=== PATIENT | female | born 1955 ===

== ENCOUNTER 2017-05-23 09:17 | Observation (INO) | payer OTHER, SELFPAY ==
[2017-05-23 09:22] VITALS: BMI 37.0
[2017-05-23 09:24] VITALS: TEMP 98; O2SAT 100
--- NOTE | 2017-05-23 09:31 | C.PDOC ---
History Of Present Illness Patient is a 61 yo female who presents to the ED with a complaint of upper abdominal pain for the last 14 days. Patient reports the pain is intermittent, sharp, and worse in the RUQ; the pain radiates to her back and is associated with nausea but no vomiting. Patient reports the pain worsens after eating; experiences constipation but reports to have had a good bowel movement yesterday. Admits to urinary frequency but denies dysuria and fever. Patient has a PMHx of DM, HTN, A-Fib and gallstones. Chief Complaint (Nursing): Abdominal Pain History Per: Patient History/Exam Limitations: no limitations Onset/Duration Of Symptoms: Days (14 days. ) Current Symptoms Are (Timing): Still Present Location Of Pain/Discomfort: RUQ (pain worse. ), Epigastric Quality Of Discomfort: Sharp Associated Symptoms: Nausea, Constipation, Urinary Symptoms (frequency). denies : Fever, Vomiting, Diarrhea Recent travel outside of the [place]: No Past Medical History Reviewed: Historical Data, Nursing Documentation, Vital Signs Vital Signs: Last Vital Signs Temp 98.0 F 05/23/17 09:23 Pulse 89 05/23/17 13:21 Resp 10 L 05/23/17 13:21 BP 116/78 05/23/17 13:21 Pulse Ox 100 05/23/17 14:10 - Medical History PMH: Diabetes, Gall Bladder Disease, HTN, Hypercholesterolemia, Hypothyroidism, Kidney Stones - [facility] Procedures CORONAR ARTERIOGR-2 CATH (06/19/13) RT & LT HEART ANGIOCARD (06/19/13) RT/LEFT HEART CARD CATH (06/19/13) Family History: States: Unknown Family Hx - Social History Hx Tobacco Use: No Hx Alcohol Use: No Hx Substance Use: No - Immunization History Hx Tetanus Toxoid Vaccination: No Hx Influenza Vaccination: No Hx Pneumococcal Vaccination: No Review Of Systems Constitutional: Negative for: Fever Cardiovascular: Negative for: Chest Pain Respiratory: Negative for: Shortness of Breath Gastrointestinal: Positive for: Nausea, Abdominal Pain, Constipation. Negative for: Vomiting Genitourinary: Positive for: Frequency. Negative for: Dysuria Physical Exam - Physical Exam Appears: Well, Non-toxic, No Acute Distress Skin: Normal Color, Warm, Dry Head: Atraumatic, Normacephalic Oral Mucosa: Moist Chest: Symmetrical Cardiovascular: Rhythm Irregular (A-Fib hx), No Murmur Respiratory: Normal Breath Sounds, No Rales, No Rhonchi, No Wheezing Gastrointestinal/Abdominal: Bowel Sounds (normal bowel sounds.), Soft, Tenderness (RUQ), No Distention, Other (negative Rubio's sign ) Extremity: Normal ROM (x4) Neurological/Psych: Oriented x3, Normal Speech, Normal Cognition ED Course And Treatment - Laboratory Results Result Diagrams: 05/23/17 09:56 05/23/17 09:56 ECG: Interpreted By Me, Viewed By Me ECG Rhythm: Atrial Fibrillation ECG Interpretation: Abnormal Rate From EC O2 Sat by Pulse Oximetry: 100 (Room air ) Pulse Ox Interpretation: Normal - CT Scan/US CT A/P Other Rad Studies (CT/US): Interpreted By Me CT/US Interpretation: FINDINGS: LOWER THORAX: No visible consolidation, pleural effusion, or pneumothorax. Partially imaged cardiomegaly. LIVER: Hypoattenuation of the liver compatible with hepatic steatosis. GALLBLADDER AND BILE DUCTS: Cholelithiasis. PANCREAS: Unremarkable. SPLEEN: Unremarkable. ADRENALS: Unremarkable. KIDNEYS AND URETERS: The kidneys enhance symmetrically. No hydronephrosis or obstructing calculus identified. VASCULATURE: No aortic aneurysm. BOWEL: Stomach is nondistended. Lack of oral contrast limits evaluation for bowel pathology. Bowel loops appear within normal limits of caliber without evidence of obstruction. APPENDIX: The appendix appears within normal limits of caliber. No secondary signs of acute appendicitis. PERITONEUM: No significant free fluid. No definite free air. LYMPH NODES: No bulky adenopathy identified. BLADDER: Unremarkable. REPRODUCTIVE: The uterus is present. BONES: Mild degenerative changes. Impression: Cholelithiasis; echogenic liver may be seen in setting of hepatic parenchymal disease or fatty infiltration. Partially images cardiomegaly. Progress Note: blood work, CT A/P with IV contrast, UA/Urine culture, and EKG ordered; Pepcid, Toradol, Zofran, and IV fluids ordered. Medical Decision Making Medical Decision Making: Prior records reviewed: Patient seen at [facility] on 07/06/15 for abdominal pain and diagnosed with cholelithiasis Plan: * CT abdomen/pelvis * EKG * bloodwork, UA, labs * Pepcid, Toradol, Zofran, IVFs * Obs- ED ED OBSERVATION Discharge: Yes Date of observation admission: 05/23/17 Time of observation admission: 09:43 - Observation admission statement Patient is being placed in observation because:: Abdominal pain - Goals of Observation Goals of observation are:: Labs, IV hydration, CT imaging - Progress Note Progress Note: 05/23/17 11:10 Labs reviewed, no significant findings. No leukocytosis, elevated lipase or electrolyte abnormality. Urine analysis WNL. 05/23/17 14:00 CT Impression: Cholelithiasis; echogenic liver may be seen in setting of hepatic parenchymal disease or fatty infiltration. Partially images cardiomegaly 05/23/17 14:02 On re-evaluation patient resting comfortably and reports pain has improved. She remains well, abdomen soft and minimally tender. I explained lab and CT findings with patient and family. Recommend analgesics, dietary changes and to follow up with GI if pain persists Disposition Counseled Patient/Family Regarding: Diagnosis, Need For Followup, Rx Given - Disposition Disposition: HOME/ ROUTINE Disposition Time: 14:10 Condition: STABLE - POA Present On Arrival: Poor Glycemic Control - Clinical Impression Clinical Impression: Cholelithiasis, Abdominal pain - Scribe Statement The provider has reviewed the documentation as recorded by the Scribabdiel Soto All medical record entries made by the Raeibabdiel were at my direction and personally dictated by me. I have reviewed the chart and agree that the record accurately reflects my personal performance of the history, physical exam, medical decision making, and the department course for this patient. I have also personally directed, reviewed, and agree with the discharge instructions and disposition.
[2017-05-23] MEDS ORDERED: Sodium Chloride 0.9% 1,000 ML IV ONE (09:42)
[2017-05-23 10:00] LABS: BASO % 0.7 % (0.0-2.0); EOS # 0.2 K/uL (0.0-0.7); EOS % 2.9 % (0.0-4.0); HEMATOCRIT 41.4 % (34.0-47.0); LYMPH # 2.2 K/uL (1.0-4.3); LYMPH % 29.4 % (20.0-40.0); MEAN CORPUSCULAR HEMOGLOBIN 30.7 pg (27.0-31.0); MEAN CORPUSCULAR HGB CONC 33.4 g/dL (33.0-37.0); MEAN PLATELET VOLUME 8.8 fL (7.2-11.7); MONO # 0.5 K/uL (0.0-0.8); MONO % 7.3 % (0.0-10.0); NRBC % 0.1 % (0.0-2.0); RED CELL DISTRIBUTION WIDTH 14.5 % (11.5-14.5); WHITE BLOOD COUNT 7.4 K/uL (4.8-10.8)
[2017-05-23] MEDS ORDERED: Sodium Chloride 0.9% 1,000 ML ONE (10:00)
[2017-05-23 10:01] LABS: MEAN CELL VOLUME 91.9 fL (81.0-99.0)
[2017-05-23 10:09] LABS: URINE BILIRUBIN NEGATIVE (NEGATIVE); URINE BLOOD NEGATIVE (NEGATIVE); URINE COLOR Straw (YELLOW); URINE GLUCOSE (UA) NORMAL (Normal); URINE KETONE NEGATIVE (NEGATIVE); URINE LEUKOCYTE ESTERASE NEG Leu/uL (Negative); URINE PROTEIN NEGATIVE (NEGATIVE); URINE UROBILINOGEN NORMAL mg/dL (0.2-1.0); WBC URINE < 1 /hpf (0-5)
[2017-05-23 10:21] LABS: ALKALINE PHOSPHATASE 108 U/L (38-126); ALT/SGPT 32 U/L (9-52); AST/SGOT 25 U/L (14-36); BLOOD UREA NITROGEN 14 mg/dL (7-17); CALCIUM 9.6 mg/dl (8.6-10.4); CARBON DIOXIDE 27 mmol/L (22-30); CHLORIDE 98 mmol/L (98-107); GFR AFRICAN-AMERICAN > 60; GLUCOSE,RANDOM 141 mg/dL (65-105); POTASSIUM 4.3 mmol/L (3.6-5.2); SODIUM 141 mmol/L (132-148); TOTAL PROTEIN 8.3 g/dL (6.3-8.3)
[2017-05-23] MEDS ORDERED: Iodixanol 320 MG/ML 100 ML BOTTLE IV ONE (11:15)
--- NOTE | 2017-05-23 12:51 | CT ---
PROCEDURE: CT Abdomen and Pelvis with contrast HISTORY: upper abd pain COMPARISON: Obstructive series performed 07/13/13 TECHNIQUE: Contrast dose: 100 cc Visipaque 320 Radiation dose: Total exam DLP = 1047.59 MGy-cm. This CT exam was performed using one or more of the following dose reduction techniques: Automated exposure control, adjustment of the mA and/or kV according to patient size, and/or use of iterative reconstruction technique. FINDINGS: LOWER THORAX: No visible consolidation, pleural effusion, or pneumothorax. Partially imaged cardiomegaly. LIVER: Hypoattenuation of the liver compatible with hepatic steatosis. GALLBLADDER AND BILE DUCTS: Cholelithiasis. PANCREAS: Unremarkable. SPLEEN: Unremarkable. ADRENALS: Unremarkable. KIDNEYS AND URETERS: The kidneys enhance symmetrically. No hydronephrosis or obstructing calculus identified. VASCULATURE: No aortic aneurysm. BOWEL: Stomach is nondistended. Lack of oral contrast limits evaluation for bowel pathology. Bowel loops appear within normal limits of caliber without evidence of obstruction. APPENDIX: The appendix appears within normal limits of caliber. No secondary signs of acute appendicitis. PERITONEUM: No significant free fluid. No definite free air. LYMPH NODES: No bulky adenopathy identified. BLADDER: Unremarkable. REPRODUCTIVE: The uterus is present. BONES: Mild degenerative changes. OTHER FINDINGS: None. IMPRESSION: Cholelithiasis. Echogenic liver may be seen in setting of hepatic parenchymal disease or fatty infiltration. Partially imaged cardiomegaly.
[2017-05-23 13:23] VITALS: BP 116/78; PULSE 89; RESP 10
--- NOTE | 2017-05-25 18:29 | CARD ---
APPROVED REPORT EKG Measurement Heart [id number] <Conclusion> Atrial fibrillation Abnormal ECG
== END 2017-05-23 14:10 | disposition home or self-care (01) ==
LOC: C.ER 09:17 → C.9OBSV 09:43
PROVIDERS: ADMIT Emergency Medicine; ATTEND Emergency Medicine
DX: K80.20 Calculus of gallbladder without cholecystitis without obstruction (principal); E11.9 Type 2 diabetes mellitus without complications; I10 Essential (primary) hypertension; E78.00 Pure hypercholesterolemia, unspecified; E03.9 Hypothyroidism, unspecified; N20.0 Calculus of kidney
CPT/HCPCS: 36415; 74177; 80053; 81001; 83690; 85025; 87086; 96360; 96374; J1885; J2405; J7040; Q9967

== ENCOUNTER 2017-09-23 10:01 | Inpatient (IN) | payer OTHER ==
[2017-09-23 10:01] VITALS: BMI 37.0
[2017-09-23] MEDS ORDERED: Sodium Chloride 0.9% 500 ML IV ONE ×2 (10:23→10:56)
[2017-09-23 10:41] LABS: BASO # 0.1 K/uL (0.0-0.2); BASO % 0.6 % (0.0-2.0); EOS # 0.3 K/uL (0.0-0.7); EOS % 2.8 % (0.0-4.0); HEMOGLOBIN 12.8 g/dL (11.0-16.0); LYMPH # 1.9 K/uL (1.0-4.3); LYMPH % 19.6 % (20.0-40.0); MEAN CELL VOLUME 91.7 fL (81.0-99.0); MEAN CORPUSCULAR HEMOGLOBIN 32.1 pg (27.0-31.0); MEAN PLATELET VOLUME 9.2 fL (7.2-11.7); MONO # 0.7 K/uL (0.0-0.8); MONO % 7.3 % (0.0-10.0); NEUT # 6.6 K/uL (1.8-7.0); NEUT % 69.7 % (50.0-75.0); NRBC % 0.1 % (0.0-2.0); RBC 3.99 Mil/uL (3.80-5.20); RED CELL DISTRIBUTION WIDTH 13.2 % (11.5-14.5); WHITE BLOOD COUNT 9.5 K/uL (4.8-10.8)
[2017-09-23 10:53] LABS: ALB/GLOB RATIO 1.1 (1.0-2.1); ALBUMIN 4.2 g/dL (3.5-5.0); ALT/SGPT 37 U/L (9-52); AST/SGOT 22 U/L (14-36); BLOOD UREA NITROGEN 11 mg/dL (7-17); CALCIUM 8.4 mg/dl (8.6-10.4); GFR AFRICAN-AMERICAN > 60; GFR NON-AFRICAN AMERICAN > 60
--- NOTE | 2017-09-23 11:02 | C.PDOC ---
History Of Present Illness 62 yo female w/PMhx of AFib, NIDDM, HTN, CHF come in for evaluation of cold sx for past week associated with runny nose, cough. As per pt, for past few days , cough became more productive with yellow sputum and associated with chest tightness with coughing. Otherwise, pt denies high fever, chills, headache, dizziness, neck pain, SOB, dyspnea, diaphoresis, palpitation, wheezing, abd. pain, V/D, back pain, UTI sx. Ambulate to Ed for evaluation, not in nay apparent distress. Time Seen by Provider: 09/23/17 10:20 Chief Complaint (Nursing): Cough, Cold, Congestion History Per: Patient History/Exam Limitations: no limitations Onset/Duration Of Symptoms: Days Current Symptoms Are (Timing): Still Present Location Of Pain: None Sick Contacts (Context): None Associated Symptoms: Cough, Sputum. denies: Neck Pain, Vomiting, Diarrhea Ear Symptoms: Bilateral: None Recent travel outside of the [place]: No Additional History Per: Patient Past Medical History Reviewed: Historical Data, Nursing Documentation, Vital Signs Vital Signs: Last Vital Signs Temp 99 F 09/23/17 10:04 Pulse 134 H 09/23/17 13:39 Resp 20 09/23/17 13:39 BP 136/88 09/23/17 13:39 Pulse Ox 97 09/23/17 13:39 - Medical History PMH: Diabetes, Gall Bladder Disease, HTN, Hypercholesterolemia, Hypothyroidism, Kidney Stones - [facility] Procedures CORONAR ARTERIOGR-2 CATH (06/19/13) RT & LT HEART ANGIOCARD (06/19/13) RT/LEFT HEART CARD CATH (06/19/13) Family History: States: Unknown Family Hx - Social History Hx Tobacco Use: No Hx Alcohol Use: No Hx Substance Use: No - Immunization History Hx Tetanus Toxoid Vaccination: No Hx Influenza Vaccination: No Hx Pneumococcal Vaccination: No Review Of Systems Except As Marked, All Systems Reviewed And Found Negative. Constitutional: Negative for: Fever, Chills ENT: Positive for: Nose Discharge, Nose Congestion. Negative for: Ear Discharge , Throat Pain, Throat Swelling Cardiovascular: Negative for: Chest Pain, Palpitations, Edema, Light Headedness Respiratory: Positive for: Cough, Sputum. Negative for: Shortness of Breath, SOB with Excertion, Pleuritic Pain, Wheezing Gastrointestinal: Negative for: Nausea, Vomiting, Abdominal Pain, Diarrhea Genitourinary: Negative for: Dysuria, Incontinence Musculoskeletal: Negative for: Neck Pain Skin: Negative for: Rash Neurological: Negative for: Weakness, Numbness, Altered Mental Status, Headache , Dizziness Physical Exam - Physical Exam Appears: Well, Non-toxic, No Acute Distress Skin: Normal Color, Warm, Dry, No Rash Head: Normacephalic Eye(s): bilateral: PERRL Ear(s): Bilateral: Normal Nose: No Flaring, Discharge (scattered clear B/L with congestion) Oral Mucosa: Moist, No Drooling Tongue: Normal Appearing Lips: Normal Appearing Throat: No Erythema, No Drooling Neck: Supple Cardiovascular: Rhythm Irregular, No Murmur, No JVD Respiratory: No Decreased Breath Sounds, No Accessory Muscle Use, No Stridor, No Wheezing Gastrointestinal/Abdominal: Soft, No Tenderness Back: No CVA Tenderness Extremity: Normal ROM, No Pedal Edema, No Deformity, No Swelling Neurological/Psych: Oriented x3, Normal Speech ED Course And Treatment - Laboratory Results Result Diagrams: 09/23/17 10:38 09/23/17 10:38 Lab Interpretation: Normal ECG: Interpreted By Me, Viewed By Me (and ED attending) ECG Rhythm: Atrial Fibrillation ECG Interpretation: No Changes From Prior Interpretation Of ECG: AFib@120/min O2 Sat by Pulse Oximetry: 100 Pulse Ox Interpretation: Normal - Radiology CXR: Interpreted by Me, Viewed By Me CXR Interpretation: Yes: Cardiomegaly. No: Infiltrates - Other Rad CXR X-Ray: Read By Radiologist Interpretation: HISTORY: Pneumonia. COMPARISON: No prior. TECHNIQUE: Chest PA and lateral. FINDINGS: LUNGS: No focal infiltrate is clearly seen. Exam is limited by body habitus. There may be some mild prominence of the interstitial markings, a portion of which may also be related to overlying soft tissue. There may be some mild subsegmental atelectasis seen at the left lung base. PLEURA: No definite pleural effusion. No pneumothorax. CARDIOVASCULAR: Heart is enlarged. There may also be some prominence of the main pulmonary outflow tract which may suggest pulmonary artery hypertension. OSSEOUS STRUCTURES: No significant abnormalities. VISUALIZED UPPER ABDOMEN: Normal. OTHER FINDINGS: Mild degenerative changes are seen in the spine. Trachea is midline. IMPRESSION: No focal infiltrate. Mild interstitial change a portion of which may be related to overlying soft tissue. Mild subsegmental atelectasis or volume loss at the left lung base. Progress Note: After initial evaluation, pt appers in Afib 120'/min. case discussed with jeanette Wang bolus ordered. monitoring analyst. Pt was re -evaluated every 30 minutes and remained hemodynamicaly stable but sympomaticaly unchanged . Pt admits, non-complaint with medication for past year, only takes BP meds and ASA. Pharmacy provided by patient called, last rx was given in 2014. Pt hs clinical findings c/w CHF, Afib, non-complaint with medication, CP, bronchitis r/o PNA. Admission offered and pt agrees with plan. Case discussed with Hospitalist and admission arranged. Critical Care Time - Critical Care Note Total Time (in mins): 40 Documented critical care: time excludes all time spent performing seperately billable procedures. Disposition - Disposition Disposition: HOSPITALIZED Disposition Time: 12:41 Condition: STABLE - Clinical Impression Clinical Impression: Bronchitis, Afib, CHF (congestive heart failure), Chest pain - PA / GLOBAL [employer]IMATE CHANGE RESEARCHER / Resident Statement MD/DO has reviewed & agrees with the documentation as recorded. - Scribe Statement The provider has reviewed the documentation as recorded by the Bridget Stewart All medical record entries made by the Bridget were at my direction and personally dictated by me. I have reviewed the chart and agree that the record accurately reflects my personal performance of the history, physical exam, medical decision making, and the department course for this patient. I have also personally directed, reviewed, and agree with the discharge instructions and disposition.
[2017-09-23] MEDS ORDERED: Albuterol 0.083% Inhal Sol (2.5 mg/3 mL) UD IH STA (11:05)
[2017-09-23] MEDS ORDERED: MethylPREDNISolone 40 mg Vial IVP STA (11:07)
[2017-09-23 11:17] LABS: SQUAMOUS EPITHIAL 3 /hpf (0-5); URINE BACTERIA RARE (<OCC); URINE BILIRUBIN NEGATIVE (NEGATIVE); URINE BLOOD NEGATIVE (NEGATIVE); URINE CLARITY Clear (Clear); URINE COLOR Yellow (YELLOW); URINE GLUCOSE (UA) NORMAL (Normal); URINE LEUKOCYTE ESTERASE NEG Leu/uL (Negative); URINE NITRATE NEGATIVE (NEGATIVE); URINE PROTEIN NEGATIVE (NEGATIVE); URINE UROBILINOGEN NORMAL mg/dL (0.2-1.0)
[2017-09-23] MEDS ORDERED: Albuterol 0.083% Inhal Sol (2.5 mg/3 mL) UD ONE (12:01)
[2017-09-23] MEDS ORDERED: MethylPREDNISolone 40 mg Vial ONE (12:01)
[2017-09-23 12:08] LABS: B-TYPE NATRIURETIC PEPTIDE 1120 pg/mL (0-900)
[2017-09-23] MEDS ORDERED: Azithromycin 500 MG in Sodium Chloride 0.9% 250 ML IVPB STA (12:34)
--- NOTE | 2017-09-23 13:24 | RAD ---
HISTORY: Pneumonia COMPARISON: No prior. TECHNIQUE: Chest PA and lateral FINDINGS: LUNGS: No focal infiltrate is clearly seen. Exam is limited by body habitus. There may be some mild prominence of the interstitial markings, a portion of which may also be related to overlying soft tissue. There may be some mild subsegmental atelectasis seen at the left lung base. PLEURA: No definite pleural effusion. No pneumothorax CARDIOVASCULAR: Heart is enlarged. There may also be some prominence of the main pulmonary outflow tract which may suggest pulmonary artery hypertension. OSSEOUS STRUCTURES: No significant abnormalities. VISUALIZED UPPER ABDOMEN: Normal. OTHER FINDINGS: Mild degenerative changes are seen in the spine. Trachea is midline. IMPRESSION: No focal infiltrate. Mild interstitial change a portion of which may be related to overlying soft tissue. Mild subsegmental atelectasis or volume loss at the left lung base.
[2017-09-23] MEDS ORDERED: Digoxin 500 mcg/2ml (0.5 mg/2ml) Inj IVP STA (14:04)
[2017-09-23] MEDS ORDERED: Ipratropium 0.02% Inhal Soln (0.5 mg/2.5 ml) UD IH PRN (14:36)
--- NOTE | 2017-09-23 15:21 | CP.PCM.CON ---
History of Present Illness - History of Present Illness History of Present Illness: patient seen/examined. patient has a history of afib, and has been followed in clinic. The patient was found to have afib with RVR. She terence associiated dyspnea. recommend admit to telemetry start cardizem lovenox. echocardiogram Past Patient History - Past Social History Smoking Status: Never Smoked - CARDIAC Hx Hypercholesterolemia: Yes Hx Hypertension: Yes - RENAL Hx Kidney Stones: Yes - ENDOCRINE/METABOLIC Hx Hypothyroidism: Yes - GASTROINTESTINAL Hx Gall Bladder Disease: Yes - PSYCHIATRIC Hx Substance Use: No - SURGICAL HISTORY Hx Cardiac Catheterization: Yes - ANESTHESIA Hx Anesthesia: Yes Hx Anesthesia Reactions: No Meds Allergies/Adverse Reactions: Allergies Allergy/AdvReac Type Severity Reaction Status Date / Time No Known Allergies Allergy Verified 05/23/17 09:20 - Medications Medications: Current Medications Aspirin (Aspirin Chewable) 81 mg PO DAILY KENYA Diltiazem HCl (Cardizem) 60 mg PO QID [facility] Enoxaparin Sodium (Lovenox) 90 mg SC Q12 KENYA Furosemide (Lasix) 20 mg IVP DAILY KENYA Last Admin: 09/23/17 15:17 Dose: 20 mg Ipratropium [place] (Atrovent) 0.5 mg IH RQ6 PRN PRN Reason: Shortness of Breath Results - Vital Signs Recent Vital Signs: Last Vital Signs Temp 99 F 09/23/17 10:04 Pulse 134 H 09/23/17 13:39 Resp 20 09/23/17 13:39 BP 119/79 09/23/17 15:17 Pulse Ox 100 09/23/17 14:56 - Labs Result Diagrams: 09/24/17 08:50 09/24/17 08:50 Labs: Laboratory Results - last 24 hr 09/23/17 09/23/17 09/23/17 10:38 10:38 11:06 WBC 9.5 RBC 3.99 Hgb 12.8 Hct 36.6 MCV 91.7 MCH 32.1 H MCHC 35.0 RDW 13.2 Plt Count 186 MPV 9.2 Neut % (Auto) 69.7 Lymph % (Auto) 19.6 L Bowie % (Auto) 7.3 Eos % (Auto) 2.8 Baso % (Auto) 0.6 Neut # 6.6 Lymph # 1.9 Bowie # 0.7 Eos # 0.3 Baso # 0.1 Sodium 138 Potassium 3.6 Chloride 99 Carbon Dioxide 27 Anion Gap 16 BUN 11 Creatinine 0.7 Est GFR ( Amer) > 60 Est GFR (Non-Af Amer) > 60 Random Glucose 157 H Calcium 8.4 L Total Bilirubin 1.3 AST 22 ALT 37 Alkaline Phosphatase 84 Troponin I < 0.0120 NT-Pro-B Natriuret Pep 1120 H Total Protein 8.2 Albumin 4.2 Globulin 4.0 H Albumin/Globulin Ratio 1.1 Urine Color Yellow Urine Clarity Clear Urine pH 6.0 Ur Specific [place] 1.012 Urine Protein Negative Urine Glucose (UA) Normal Urine Ketones Negative Urine Blood Negative Urine Nitrate Negative Urine Bilirubin Negative Urine Urobilinogen Normal Ur Leukocyte Esterase Neg Urine WBC (Auto) 1 Urine RBC (Auto) < 1 Ur Squamous Epith Cells 3 Urine Bacteria Rare Digoxin Influenza Typ A,B (EIA) 09/23/17 09/23/17 11:20 12:45 WBC RBC Hgb Hct MCV MCH MCHC RDW Plt Count MPV Neut % (Auto) Lymph % (Auto) Bowie % (Auto) Eos % (Auto) Baso % (Auto) Neut # Lymph # Bowie # Eos # Baso # Sodium Potassium Chloride Carbon Dioxide Anion Gap BUN Creatinine Est GFR ( Amer) Est GFR (Non-Af Amer) Random Glucose Calcium Total Bilirubin AST ALT Alkaline Phosphatase Troponin I NT-Pro-B Natriuret Pep Total Protein Albumin Globulin Albumin/Globulin Ratio Urine Color Urine Clarity Urine pH Ur Specific [place] Urine Protein Urine Glucose (UA) Urine Ketones Urine Blood Urine Nitrate Urine Bilirubin Urine Urobilinogen Ur Leukocyte Esterase Urine WBC (Auto) Urine RBC (Auto) Ur Squamous Epith Cells Urine Bacteria Digoxin < 0.4 L Influenza Typ A,B (EIA) Negative for flu a/b
[2017-09-23] MEDS ORDERED: Digoxin 500 mcg/2ml (0.5 mg/2ml) Inj ONE (16:00)
--- NOTE | 2017-09-23 16:09 | CP.PCM.HP ---
<Gayathri WilcoxDolores - Last Filed: 09/23/17 19:59> History of Present Illness - History of Present Illness History of Present Illness: CC: Cough Patient is a 62 yo female with PMH afib, HTN, CHF, cholelithiasis presenting with a 3 day history of cough with yellowish sputum production. She has been taking Dayquil and Nyquil which have relieved her symptoms minimally. She also admits to episodes of her heart racing as well as a pressure like sensation in the center of her chest when she if coughing. However, these symptoms subside when she is not coughing. Patient denies throat pain. Patient also complains of subjective fevers for the past 3 days. Of note, she recently ran out of her medications and had not taken them in about a week. She is also s /p cardiac catheterization in 06/30 which showed normal coronary arteries and moderate mitral stenosis. She denies SOB, N/V, abdominal, diarrhea. PMD: none Cardio: Dr. Watson Morales Allergies: Denies Medications: Aspirin 81 mg PO QD, Digoxin, Olmesartan medoxomil/amlodipine/HCTZ 40 mg/5 mg/12.5 mg PMD: Unknown Surgical history: Cardiac catheterization 06/30 Family history: Denies Social history: Denies tobacco, alcohol, or recreational drug use Present on Admission - Present on Admission Any Indicators Present on Admission: No History of DVT/PE: No History of Uncontrolled Diabetes: No Urinary Catheter: No Decubitus Ulcer Present: No Review of Systems - Constitutional Constitutional: Fever. absent: Headache - EENT Eyes: absent: Change in Vision Nose/Mouth/Throat: absent: Sore Throat - Cardiovascular Cardiovascular: Chest Pain, Irregular Heart Rhythm, Palpitations, Rapid Heart Rate. absent: Dyspnea, Edema - Respiratory Respiratory: Cough, Chest Congestion, Excessive Mucous Production, Pain with Coughing - Gastrointestinal Gastrointestinal: absent: Abdominal Pain, Constipation, Diarrhea, Nausea, Vomiting - Integumentary Integumentary: absent: Rash - Hematologic/Lymphatic Hematologic: absent: Easy Bleeding, Easy Bruising Past Patient History - Past Social History Smoking Status: Never Smoked - CARDIAC Hx Hypercholesterolemia: Yes Hx Hypertension: Yes - RENAL Hx Kidney Stones: Yes - ENDOCRINE/METABOLIC Hx Hypothyroidism: Yes - GASTROINTESTINAL Hx Gall Bladder Disease: Yes - PSYCHIATRIC Hx Substance Use: No - SURGICAL HISTORY Hx Cardiac Catheterization: Yes - ANESTHESIA Hx Anesthesia: Yes Hx Anesthesia Reactions: No Meds Allergies/Adverse Reactions: Allergies Allergy/AdvReac Type Severity Reaction Status Date / Time No Known Allergies Allergy Verified 05/23/17 09:20 Physical Exam - Constitutional Appears: Non-toxic, No Acute Distress - Head Exam Head Exam: ATRAUMATIC, NORMAL INSPECTION, NORMOCEPHALIC - Eye Exam Eye Exam: EOMI, Normal appearance - ENT Exam ENT Exam: Mucous Membranes Moist - Respiratory Exam Respiratory Exam: Rhonchi, NORMAL BREATHING PATTERN - Cardiovascular Exam Cardiovascular Exam: Tachycardia, Irregular Rhythm, +S1, +S2 - GI/Abdominal Exam GI & Abdominal Exam: Normal Bowel Sounds, Soft. absent: Tenderness - Extremities Exam Extremities exam: Positive for: normal inspection. Negative for: pedal edema, tenderness - Back Exam Back exam: NORMAL INSPECTION - Neurological Exam Neurological exam: Alert, Oriented x3 - Psychiatric Exam Psychiatric exam: Normal Affect, Normal Mood - Skin Skin Exam: Intact, Normal Color, Warm Results - Vital Signs Recent Vital Signs: Last Vital Signs Temp 99 F 09/23/17 10:04 Pulse 134 H 09/23/17 13:39 Resp 20 09/23/17 13:39 BP 119/79 09/23/17 15:17 Pulse Ox 100 09/23/17 14:56 - Labs Result Diagrams: 09/23/17 10:38 09/23/17 10:38 Labs: Laboratory Results - last 24 hr 09/23/17 09/23/17 09/23/17 10:38 10:38 11:06 WBC 9.5 RBC 3.99 Hgb 12.8 Hct 36.6 MCV 91.7 MCH 32.1 H MCHC 35.0 RDW 13.2 Plt Count 186 MPV 9.2 Neut % (Auto) 69.7 Lymph % (Auto) 19.6 L [place] % (Auto) 7.3 Eos % (Auto) 2.8 Baso % (Auto) 0.6 Neut # 6.6 Lymph # 1.9 [place] # 0.7 Eos # 0.3 Baso # 0.1 Sodium 138 Potassium 3.6 Chloride 99 Carbon Dioxide 27 Anion Gap 16 BUN 11 Creatinine 0.7 Est GFR ( Amer) > 60 Est GFR (Non-Af Amer) > 60 Random Glucose 157 H Calcium 8.4 L Total Bilirubin 1.3 AST 22 ALT 37 Alkaline Phosphatase 84 Troponin I < 0.0120 NT-Pro-B Natriuret Pep 1120 H Total Protein 8.2 Albumin 4.2 Globulin 4.0 H Albumin/Globulin Ratio 1.1 Urine Color Yellow Urine Clarity Clear Urine pH 6.0 Ur Specific [place] 1.012 Urine Protein Negative Urine Glucose (UA) Normal Urine Ketones Negative Urine Blood Negative Urine Nitrate Negative Urine Bilirubin Negative Urine Urobilinogen Normal Ur Leukocyte Esterase Neg Urine WBC (Auto) 1 Urine RBC (Auto) < 1 Ur Squamous Epith Cells 3 Urine Bacteria Rare Digoxin Influenza Typ A,B (EIA) 09/23/17 09/23/17 11:20 12:45 WBC RBC Hgb Hct MCV MCH MCHC RDW Plt Count MPV Neut % (Auto) Lymph % (Auto) [place] % (Auto) Eos % (Auto) Baso % (Auto) Neut # Lymph # [place] # Eos # Baso # Sodium Potassium Chloride Carbon Dioxide Anion Gap BUN Creatinine Est GFR ( Amer) Est GFR (Non-Af Amer) Random Glucose Calcium Total Bilirubin AST ALT Alkaline Phosphatase Troponin I NT-Pro-B Natriuret Pep Total Protein Albumin Globulin Albumin/Globulin Ratio Urine Color Urine Clarity Urine pH Ur Specific [place] Urine Protein Urine Glucose (UA) Urine Ketones Urine Blood Urine Nitrate Urine Bilirubin Urine Urobilinogen Ur Leukocyte Esterase Urine WBC (Auto) Urine RBC (Auto) Ur Squamous Epith Cells Urine Bacteria Digoxin < 0.4 L Influenza Typ A,B (EIA) Negative for flu a/b Assessment & Plan - Assessment and Plan (Free Text) Assessment: CHF exacerbation cough secondary to CHF exacerbation v infectious process BNP: 1120 Azithromycin 500mg IVBP daily Lasix 20mg ivp daily Ipratropium q6h prn f/u blood culture, urine culture f/u HgA1C, TSH, lipid panel cardiology consulted, Dr. Nunez, help appreciated Hx Afib EKG: A fib with RVR at 120 bpm was not on any anticoagulation or rate control at home Cardizem 60mg po QID Lovenox 90mg sc q12h ASA 81 mg po daily f/u Echo Cardiology consulted, Dr. Nunez- help appreciated HTN Losartan 25mg po daily (was on combo pill at home: Olmesartan/Amlodipine/HCTZ) monitor BP and adjust accordingly Prophylaxis Pepcid 20mg po BID Lovenox 90mg sc q12h <Roger Pope - Last Filed: 09/24/17 17:11> Results - Vital Signs Recent Vital Signs: Last Vital Signs Temp 98.5 F 09/24/17 16:00 Pulse 86 09/24/17 16:00 Resp 18 09/24/17 16:00 BP 116/76 09/24/17 16:00 Pulse Ox 100 09/24/17 16:00 - Labs Result Diagrams: 09/24/17 08:50 09/24/17 08:50 Labs: Laboratory Results - last 24 hr 09/24/17 09/24/17 09/24/17 06:21 08:50 08:50 WBC 12.6 H RBC 4.05 Hgb 12.7 Hct 37.3 MCV 92.1 MCH 31.3 H MCHC 34.0 RDW 13.3 Plt Count 227 MPV 9.1 Neut % (Auto) 86.5 H Lymph % (Auto) 8.7 L [place] % (Auto) 4.7 Eos % (Auto) 0.0 Baso % (Auto) 0.1 Neut # 10.9 H Lymph # 1.1 [place] # 0.6 Eos # 0.0 Baso # 0.0 Neutrophils % (Manual) 88 H Band Neutrophils % 2 Lymphocytes % (Manual) 7 L Monocytes % (Manual) 3 Platelet Estimate Normal RBC Morphology Normal Sodium 136 Potassium 3.7 Chloride 98 Carbon Dioxide 28 Anion Gap 14 BUN 14 Creatinine 0.6 L Est GFR ( Amer) > 60 Est GFR (Non-Af Amer) > 60 POC Glucose (mg/dL) 186 H Random Glucose 186 H Calcium 8.1 L Phosphorus 3.1 Magnesium 1.8 Total Bilirubin 1.4 H AST 23 ALT 29 Alkaline Phosphatase 88 Total Protein 8.4 H Albumin 4.3 Globulin 4.1 H Albumin/Globulin Ratio 1.0 Triglycerides 77 D Cholesterol 132 LDL Cholesterol Direct 82 HDL Cholesterol 31 TSH 3rd Generation 1.41 09/24/17 12:02 WBC RBC Hgb Hct MCV MCH MCHC RDW Plt Count MPV Neut % (Auto) Lymph % (Auto) [place] % (Auto) Eos % (Auto) Baso % (Auto) Neut # Lymph # [place] # Eos # Baso # Neutrophils % (Manual) Band Neutrophils % Lymphocytes % (Manual) Monocytes % (Manual) Platelet Estimate RBC Morphology Sodium Potassium Chloride Carbon Dioxide Anion Gap BUN Creatinine Est GFR ( Amer) Est GFR (Non-Af Amer) POC Glucose (mg/dL) 185 H Random Glucose Calcium Phosphorus Magnesium Total Bilirubin AST ALT Alkaline Phosphatase Total Protein Albumin Globulin Albumin/Globulin Ratio Triglycerides Cholesterol LDL Cholesterol Direct HDL Cholesterol TSH 3rd Generation Attending/Attestation - Attestation I have personally seen and examined this patient.: Yes I have fully participated in the care of the patient.: Yes I have reviewed all pertinent clinical information: Yes Notes (Text): Patient was seen and examined,sitting with mild sob,c/o cough with yellow sputum d/w patient daughter at bedside case discussed with the resident we will admit for Afib with rapid rate d/w DR lyons .previous echo MS,start on Lovenox and get echocardiography Digoxin IV given and started on cardizem I agree with the documentation of the assessment and the plan
[2017-09-23 16:10] VITALS: PULSE 138
[2017-09-23] MEDS: Enoxaparin 100 mg Syringe SC SCH (22:42)
[2017-09-24 09:00] LABS: BASO % 0.1 % (0.0-2.0); HEMOGLOBIN 12.7 g/dL (11.0-16.0); LYMPH # 1.1 K/uL (1.0-4.3); LYMPH % 8.7 % (20.0-40.0); MEAN CELL VOLUME 92.1 fL (81.0-99.0); MEAN CORPUSCULAR HEMOGLOBIN 31.3 pg (27.0-31.0); MEAN PLATELET VOLUME 9.1 fL (7.2-11.7); MONO # 0.6 K/uL (0.0-0.8); MONO % 4.7 % (0.0-10.0); NEUT # 10.9 K/uL (1.8-7.0); NEUT % 86.5 % (50.0-75.0); PLATELET COUNT 227 K/uL (130-400); RBC 4.05 Mil/uL (3.80-5.20); RED CELL DISTRIBUTION WIDTH 13.3 % (11.5-14.5); WHITE BLOOD COUNT 12.6 K/uL (4.8-10.8)
[2017-09-24] MEDS: Enoxaparin 100 mg Syringe SC SCH ×2 (09:31→22:00)
[2017-09-24 09:39] LABS: ALBUMIN 4.3 g/dL (3.5-5.0); ALT/SGPT 29 U/L (9-52); AST/SGOT 23 U/L (14-36); BLOOD UREA NITROGEN 14 mg/dL (7-17); CALCIUM 8.1 mg/dl (8.6-10.4); GFR AFRICAN-AMERICAN > 60; GFR NON-AFRICAN AMERICAN > 60; HDL CHOLESTEROL 31 mg/dL (30-70); MAGNESIUM 1.8 mg/dL (1.6-2.3)
[2017-09-24 09:42] LABS: LDL CHOLESTEROL 82 mg/dL (0-129)
[2017-09-24 10:06] LABS: BANDS 2 % (0-2); LYMPHOCYTE 7 % (20-40); MONOCYTE 3 % (0-10); NEUTROPHIL 88 % (50-75); TOTAL CELLS COUNTED 100
[2017-09-24 10:07] LABS: PLATELET ESTIMATE NORMAL (NORMAL)
--- NOTE | 2017-09-24 12:13 | CP.PCM.PN ---
<Lior White - Last Filed: 09/24/17 19:38> Subjective - Date & Time of Evaluation Date of Evaluation: 09/24/17 Time of Evaluation: 10:00 - Subjective Subjective: Dr. Pope note: Patient seen and examined in room. She says her breathing has improved since admission and she is not coughing as much, over all she is felling well. She denies any fever, chills, nausea, vomiting, or diarrhea. Objective - Vital Signs/Intake and Output Vital Signs (last 24 hours): Temp Pulse Resp BP Pulse Ox 97.4 F L 102 H 20 131/88 97 09/24/17 08:00 09/24/17 08:00 09/24/17 08:00 09/24/17 09:26 09/24/17 08:00 Intake and Output: 09/24/17 09/24/17 06:59 18:59 Intake Total 600 Balance 600 - Medications Medications: Current Medications Aspirin (Aspirin Chewable) 81 mg PO DAILY [facility] Last Admin: 09/24/17 09:26 Dose: 81 mg Diltiazem HCl (Cardizem) 60 mg PO QID [facility] Last Admin: 09/24/17 09:26 Dose: 60 mg Enoxaparin Sodium (Lovenox) 90 mg SC Q12 [facility] Last Admin: 09/24/17 09:31 Dose: 90 mg Famotidine (Pepcid) 20 mg PO BID [facility] Last Admin: 09/24/17 09:26 Dose: 20 mg Furosemide (Lasix) 20 mg IVP DAILY [facility] Last Admin: 09/24/17 09:26 Dose: 20 mg Azithromycin 500 mg/ Sodium (Chloride) 250 mls @ 250 mls/hr IVPB DAILY [facility] Ipratropium [place] (Atrovent) 0.5 mg IH RQ6 PRN PRN Reason: Shortness of Breath Losartan Potassium (Cozaar) 25 mg PO DAILY [facility] Last Admin: 09/24/17 09:26 Dose: 25 mg - Labs Labs: 09/24/17 08:50 09/24/17 08:50 - Constitutional Appears: Non-toxic, No Acute Distress - Eye Exam Eye Exam: Normal appearance Pupil Exam: NORMAL ACCOMODATION - Respiratory Exam Respiratory Exam: Clear to Ausculation Bilateral. absent: Rales, Rhonchi, Wheezes - Cardiovascular Exam Cardiovascular Exam: REGULAR RHYTHM, RRR, +S1, +S2. absent: Gallop, Rubs - GI/Abdominal Exam GI & Abdominal Exam: Soft, Normal Bowel Sounds. absent: Tenderness - Extremities Exam Extremities Exam: Normal Inspection. absent: Pedal Edema - Back Exam Back Exam: NORMAL INSPECTION - Psychiatric Exam Psychiatric exam: Normal Affect, Normal Mood Assessment and Plan - Assessment and Plan (Free Text) Assessment: CHF exacerbation 09/24: Day 2 of IV Zithromax, continue Lasix, blood and urine cultures negative. lipid panel and TSH are unremarkable, Hba1c is pending. Echo is pending as well. continue with breathing treatment. cough secondary to CHF exacerbation v infectious process BNP: 1120 Azithromycin 500mg IVBP daily Lasix 20mg ivp daily Ipratropium q6h prn f/u blood culture, urine culture f/u HgA1C, TSH, lipid panel cardiology consulted, Dr. Nunez, help appreciated Hx Afib 09/24: Raite is well controlled, continue theraputic Lovenox, will consider PO oral anticoaguation upon discharge, Echo pending. EKG: A fib with RVR at 120 bpm was not on any anticoagulation or rate control at home Cardizem 60mg po QID Lovenox 90mg sc q12h ASA 81 mg po daily f/u Echo Cardiology consulted, Dr. Nunez- help appreciated HTN 09/24: Will discharge with combination medication. Losartan 25mg po daily (was on combo pill at home: Olmesartan/Amlodipine/HCTZ) monitor BP and adjust accordingly Prophylaxis Pepcid 20mg po BID Lovenox 90mg sc q12h <Roger Pope - Last Filed: 09/24/17 20:01> Objective - Vital Signs/Intake and Output Vital Signs (last 24 hours): Temp Pulse Resp BP Pulse Ox 98.5 F 86 18 116/76 100 09/24/17 16:00 09/24/17 16:00 09/24/17 16:00 09/24/17 16:00 09/24/17 16:00 Intake and Output: 09/24/17 09/25/17 18:59 06:59 Intake Total 730 Balance 730 - Medications Medications: Current Medications Aspirin (Aspirin Chewable) 81 mg PO DAILY [facility] Last Admin: 09/24/17 09:26 Dose: 81 mg Diltiazem HCl (Cardizem) 60 mg PO QID [facility] Last Admin: 09/24/17 17:28 Dose: 60 mg Enoxaparin Sodium (Lovenox) 90 mg SC Q12 [facility] Last Admin: 09/24/17 09:31 Dose: 90 mg Famotidine (Pepcid) 20 mg PO BID [facility] Last Admin: 09/24/17 17:28 Dose: 20 mg Furosemide (Lasix) 20 mg IVP DAILY [facility] Last Admin: 09/24/17 09:26 Dose: 20 mg Azithromycin 500 mg/ Sodium (Chloride) 250 mls @ 250 mls/hr IVPB DAILY [facility] Last Admin: 09/24/17 12:45 Dose: 250 mls/hr Ipratropium [place] (Atrovent) 0.5 mg IH RQ6 [facility] Losartan Potassium (Cozaar) 25 mg PO DAILY [facility] Last Admin: 09/24/17 09:26 Dose: 25 mg - Labs Labs: 09/24/17 08:50 09/24/17 08:50 Attending/Attestation - Attestation I have personally seen and examined this patient.: Yes I have fully participated in the care of the patient.: Yes I have reviewed all pertinent clinical information, including history, physical exam and plan: Yes Notes (Text): Seen and examined sitting comfortable,no sob continue current meds follow Echo and decide about anticoagulation.continue lovenox I agree with the documentation of the assessment and the plan
[2017-09-24] MEDS: Azithromycin 500 MG in Sodium Chloride 0.9% 250 ML IVPB SCH (12:45)
--- NOTE | 2017-09-24 14:06 | CP.PCM.PN ---
Subjective - Date & Time of Evaluation Date of Evaluation: 09/24/17 Time of Evaluation: 13:50 - Subjective Subjective: no new complaints. heart rate improved. awaiting echocardiogram Objective - Vital Signs/Intake and Output Vital Signs (last 24 hours): Temp Pulse Resp BP Pulse Ox 97.4 F L 102 H 20 131/88 97 09/24/17 08:00 09/24/17 08:00 09/24/17 08:00 09/24/17 09:26 09/24/17 08:00 Intake and Output: 09/24/17 09/24/17 06:59 18:59 Intake Total 600 730 Balance 600 730 - Medications Medications: Current Medications Aspirin (Aspirin Chewable) 81 mg PO DAILY [facility] Last Admin: 09/24/17 09:26 Dose: 81 mg Diltiazem HCl (Cardizem) 60 mg PO QID [facility] Last Admin: 09/24/17 12:59 Dose: 60 mg Enoxaparin Sodium (Lovenox) 90 mg SC Q12 [facility] Last Admin: 09/24/17 09:31 Dose: 90 mg Famotidine (Pepcid) 20 mg PO BID [facility] Last Admin: 09/24/17 09:26 Dose: 20 mg Furosemide (Lasix) 20 mg IVP DAILY [facility] Last Admin: 09/24/17 09:26 Dose: 20 mg Azithromycin 500 mg/ Sodium (Chloride) 250 mls @ 250 mls/hr IVPB DAILY [facility] Last Admin: 09/24/17 12:45 Dose: 250 mls/hr Ipratropium [place] (Atrovent) 0.5 mg IH RQ6 PRN PRN Reason: Shortness of Breath Last Admin: 09/24/17 13:47 Dose: 0.5 mg Losartan Potassium (Cozaar) 25 mg PO DAILY [facility] Last Admin: 09/24/17 09:26 Dose: 25 mg - Labs Labs: 09/24/17 08:50 09/24/17 08:50
[2017-09-25] MEDS: Ipratropium 0.02% Inhal Soln (0.5 mg/2.5 ml) UD IH SCH ×4 (02:28→19:26)
[2017-09-25 08:03] LABS: BASO # 0.1 K/uL (0.0-0.2); BASO % 0.8 % (0.0-2.0); EOS # 0.2 K/uL (0.0-0.7); EOS % 1.6 % (0.0-4.0); LYMPH # 2.7 K/uL (1.0-4.3); LYMPH % 25.7 % (20.0-40.0); MEAN CELL VOLUME 93.1 fL (81.0-99.0); MEAN CORPUSCULAR HEMOGLOBIN 30.7 pg (27.0-31.0); MEAN PLATELET VOLUME 9.3 fL (7.2-11.7); MONO # 0.8 K/uL (0.0-0.8); MONO % 7.5 % (0.0-10.0); NEUT # 6.9 K/uL (1.8-7.0); NEUT % 64.4 % (50.0-75.0); NRBC % 0.1 % (0.0-2.0); RBC 3.91 Mil/uL (3.80-5.20); RED CELL DISTRIBUTION WIDTH 13.8 % (11.5-14.5); WHITE BLOOD COUNT 10.6 K/uL (4.8-10.8)
[2017-09-25 08:37] LABS: ALB/GLOB RATIO 1.1 (1.0-2.1); ALBUMIN 3.6 g/dL (3.5-5.0); ALT/SGPT 21 U/L (9-52); AST/SGOT 20 U/L (14-36); BLOOD UREA NITROGEN 15 mg/dL (7-17); CALCIUM 7.9 mg/dl (8.6-10.4); GFR AFRICAN-AMERICAN > 60; GFR NON-AFRICAN AMERICAN > 60
[2017-09-25] MEDS ORDERED: Potassium Chloride 20 mEq ER Tab PO ONE (10:30)
[2017-09-25] MEDS: Enoxaparin 100 mg Syringe SC SCH ×2 (10:33→21:18)
[2017-09-25] MEDS: Azithromycin 500 MG in Sodium Chloride 0.9% 250 ML IVPB SCH (10:35)
[2017-09-25] MEDS ORDERED: Dextrose 50% SYRINGE Inj (50 ml) IV PRN (12:54)
[2017-09-25] MEDS ORDERED: Glucagon Recombinant 1 mg Inj IM PRN (12:54)
[2017-09-25] MEDS: (Novolin R) Insulin Human Regular 100 units/ml vial SC SCH ×2 (17:15→21:49)
--- NOTE | 2017-09-25 18:48 | CP.PCM.PN ---
Subjective - Date & Time of Evaluation Date of Evaluation: 09/25/17 Time of Evaluation: 18:45 - Subjective Subjective: echocardiogram reviewed. mild LV dysfunction. severe bilateral atrial dilatation. moderate to severe mitral stenosis. severe pulmonary HTN. Recommend rate control. start coumadin. will need SW eval for medications, and clinic follow up Objective - Vital Signs/Intake and Output Vital Signs (last 24 hours): Temp Pulse Resp BP Pulse Ox 98.1 F 73 20 120/83 99 09/25/17 15:05 09/25/17 16:00 09/25/17 15:05 09/25/17 15:05 09/25/17 15:05 Intake and Output: 09/25/17 09/25/17 06:59 18:59 Intake Total 480 250 Balance 480 250 - Medications Medications: Current Medications Aspirin (Aspirin Chewable) 81 mg PO DAILY [facility] Last Admin: 09/25/17 09:57 Dose: 81 mg Azithromycin (Zithromax) 500 mg PO DAILY [facility] Dextrose (Dextrose 50% Inj) 0 ml IV STAT PRN; Protocol PRN Reason: Hypoglycemia Protocol Dextrose (Glutose 15) 0 gm PO ONCE PRN; Protocol PRN Reason: Hypoglycemia Protocol Diltiazem HCl (Cardizem) 60 mg PO QID [facility] Last Admin: 09/25/17 17:47 Dose: 60 mg Enoxaparin Sodium (Lovenox) 90 mg SC Q12 [facility] Last Admin: 09/25/17 10:33 Dose: 90 mg Famotidine (Pepcid) 20 mg PO BID [facility] Last Admin: 09/25/17 17:47 Dose: 20 mg Furosemide (Lasix) 20 mg IVP DAILY [facility] Last Admin: 09/25/17 09:58 Dose: 20 mg Glucagon (Glucagen Diagnostic Kit) 0 mg IM STAT PRN; Protocol PRN Reason: Hypoglycemia Protocol Dextrose (Dextrose 5% In Water 1000 Ml) 1,000 mls @ 0 mls/hr IV .Q0M PRN; Protocol; Per Protocol PRN Reason: Hypoglycemia Protocol Insulin Human Regular (Novolin R) 0 unit SC ACHS [facility] PRN Reason: Protocol Last Admin: 09/25/17 17:15 Dose: Not Given Ipratropium [place] (Atrovent) 0.5 mg IH RQ6 [facility] Last Admin: 09/25/17 15:05 Dose: Not Given Losartan Potassium (Cozaar) 25 mg PO DAILY [facility] Last Admin: 09/25/17 09:58 Dose: 25 mg Rosuvastatin Calcium (Crestor) 5 mg PO HS [facility] - Labs Labs: 09/25/17 07:21 09/25/17 07:21
--- NOTE | 2017-09-25 19:27 | CP.PCM.PN ---
<IrvinabdielKassieconnor - Last Filed: 09/25/17 19:21> Subjective - Date & Time of Evaluation Date of Evaluation: 09/25/17 Time of Evaluation: 09:00 - Subjective Subjective: Patient has been seen and examined. No overnight events reported. Denies any SOB and her cough has improved. Objective - Vital Signs/Intake and Output Vital Signs (last 24 hours): Temp Pulse Resp BP Pulse Ox 98.1 F 73 20 120/83 99 09/25/17 15:05 09/25/17 16:00 09/25/17 15:05 09/25/17 15:05 09/25/17 15:05 Intake and Output: 09/25/17 09/26/17 18:59 06:59 Intake Total 250 Balance 250 - Medications Medications: Current Medications Aspirin (Aspirin Chewable) 81 mg PO DAILY [facility] Last Admin: 09/25/17 09:57 Dose: 81 mg Azithromycin (Zithromax) 500 mg PO DAILY [facility] Dextrose (Dextrose 50% Inj) 0 ml IV STAT PRN; Protocol PRN Reason: Hypoglycemia Protocol Dextrose (Glutose 15) 0 gm PO ONCE PRN; Protocol PRN Reason: Hypoglycemia Protocol Diltiazem HCl (Cardizem) 60 mg PO QID [facility] Last Admin: 09/25/17 17:47 Dose: 60 mg Enoxaparin Sodium (Lovenox) 90 mg SC Q12 [facility] Last Admin: 09/25/17 10:33 Dose: 90 mg Famotidine (Pepcid) 20 mg PO BID [facility] Last Admin: 09/25/17 17:47 Dose: 20 mg Furosemide (Lasix) 20 mg IVP DAILY [facility] Last Admin: 09/25/17 09:58 Dose: 20 mg Glucagon (Glucagen Diagnostic Kit) 0 mg IM STAT PRN; Protocol PRN Reason: Hypoglycemia Protocol Dextrose (Dextrose 5% In Water 1000 Ml) 1,000 mls @ 0 mls/hr IV .Q0M PRN; Protocol; Per Protocol PRN Reason: Hypoglycemia Protocol Insulin Human Regular (Novolin R) 0 unit SC ACHS [facility] PRN Reason: Protocol Last Admin: 09/25/17 17:15 Dose: Not Given Ipratropium [place] (Atrovent) 0.5 mg IH RQ6 [facility] Last Admin: 09/25/17 15:05 Dose: Not Given Losartan Potassium (Cozaar) 25 mg PO DAILY [facility] Last Admin: 09/25/17 09:58 Dose: 25 mg Rosuvastatin Calcium (Crestor) 5 mg PO HS [facility] - Labs Labs: 09/25/17 07:21 09/25/17 07:21 - Additional Findings Additional findings: - Constitutional Appears: Non-toxic, No Acute Distress - Eye Exam Eye Exam: Normal appearance Pupil Exam: NORMAL ACCOMODATION - Respiratory Exam Respiratory Exam: Clear to Ausculation Bilateral. absent: Rales, Rhonchi, Wheezes - Cardiovascular Exam Cardiovascular Exam: REGULAR RHYTHM, RRR, +S1, +S2. absent: Gallop, Rubs - GI/Abdominal Exam GI & Abdominal Exam: Soft, Normal Bowel Sounds. absent: Tenderness - Extremities Exam Extremities Exam: Normal Inspection. absent: Pedal Edema - Back Exam Back Exam: NORMAL INSPECTION - Psychiatric Exam Psychiatric exam: Normal Affect, Normal Mood Assessment and Plan - Assessment and Plan (Free Text) Plan: CHF exacerbation 09/24: Day 2 of IV Zithromax, continue Lasix, blood and urine cultures negative. lipid panel and TSH are unremarkable, Hba1c is pending. ECHO: mild LV dysfunction. severe bilateral atrial dilatation. moderate to severe mitral stenosis. severe pulmonary HTN. cough secondary to CHF exacerbation v infectious process BNP: 1120 Azithromycin 500mg IVBP daily Lasix 20mg ivp daily Ipratropium q6h prn f/u blood culture, urine culture f/u HgA1C, TSH, lipid panel cardiology consulted, Dr. Nunez, help appreciated -recommends rate control, starting coumadin, SW eval for medications and clinic follow up. Hx Afib 09/24: Raite is well controlled, continue theraputic Lovenox, will consider PO oral anticoaguation upon discharge, Echo pending. EKG: A fib with RVR at 120 bpm was not on any anticoagulation or rate control at home Cardizem 60mg po QID Lovenox 90mg sc q12h ASA 81 mg po daily ECHO results as stated above. Cardiology consulted, Dr. Nunez- help appreciated HTN 09/24: Will discharge with combination medication. Losartan 25mg po daily (was on combo pill at home: Olmesartan/Amlodipine/HCTZ) monitor BP and adjust accordingly Prophylaxis Pepcid 20mg po BID Lovenox 90mg sc q12h Dispo: Will likely leave tomorrow AM. Will discuss with Dr. Nunez about anticouag options. Considering Xarelto. Patient discussed with Attending Viraj Bowser - PGY1 <Parmjit Stewart - Last Filed: 09/25/17 21:14> Objective - Vital Signs/Intake and Output Vital Signs (last 24 hours): Temp Pulse Resp BP Pulse Ox 98.1 F 73 20 120/83 99 09/25/17 15:05 09/25/17 16:00 09/25/17 15:05 09/25/17 15:05 09/25/17 15:05 Intake and Output: 09/25/17 09/26/17 18:59 06:59 Intake Total 250 Balance 250 - Medications Medications: Current Medications Aspirin (Aspirin Chewable) 81 mg PO DAILY [facility] Last Admin: 09/25/17 09:57 Dose: 81 mg Azithromycin (Zithromax) 500 mg PO DAILY [facility] Dextrose (Dextrose 50% Inj) 0 ml IV STAT PRN; Protocol PRN Reason: Hypoglycemia Protocol Dextrose (Glutose 15) 0 gm PO ONCE PRN; Protocol PRN Reason: Hypoglycemia Protocol Diltiazem HCl (Cardizem) 60 mg PO QID [facility] Last Admin: 09/25/17 17:47 Dose: 60 mg Enoxaparin Sodium (Lovenox) 90 mg SC Q12 [facility] Last Admin: 09/25/17 10:33 Dose: 90 mg Famotidine (Pepcid) 20 mg PO BID [facility] Last Admin: 09/25/17 17:47 Dose: 20 mg Furosemide (Lasix) 20 mg IVP DAILY [facility] Last Admin: 09/25/17 09:58 Dose: 20 mg Glucagon (Glucagen Diagnostic Kit) 0 mg IM STAT PRN; Protocol PRN Reason: Hypoglycemia Protocol Dextrose (Dextrose 5% In Water 1000 Ml) 1,000 mls @ 0 mls/hr IV .Q0M PRN; Protocol; Per Protocol PRN Reason: Hypoglycemia Protocol Insulin Human Regular (Novolin R) 0 unit SC ACHS [facility] PRN Reason: Protocol Last Admin: 09/25/17 17:15 Dose: Not Given Ipratropium [place] (Atrovent) 0.5 mg IH RQ6 [facility] Last Admin: 09/25/17 19:26 Dose: 0.5 mg Losartan Potassium (Cozaar) 25 mg PO DAILY [facility] Last Admin: 09/25/17 09:58 Dose: 25 mg Rosuvastatin Calcium (Crestor) 5 mg PO HS [facility] - Labs Labs: 09/25/17 07:21 09/25/17 07:21 Attending/Attestation - Attestation I have personally seen and examined this patient.: Yes I have fully participated in the care of the patient.: Yes I have reviewed all pertinent clinical information, including history, physical exam and plan: Yes Notes (Text): 09/25/17 21:01 Patient was seen and examined at 1:00 PM 09/25/17 Bed 653 A with family friend and daughter present and they helped to translate. Exam, assessment and plan were gone over with the resident Also on ROS: Chest pressure has resolved NO more episodes of heart racing NO feelings of fever Cough is now more dry and less than admission Asssessments: 1). Heart Failure F/U official 2D Echo Report [facility] Dr. Nunez has reviewed Echo: mild LV dysfunction, severe bilateral atrial dilatation, moderate to severe mitral stenosis, severe pulmonary HTN Lars Valentin 2). Hx Atrial Fibrillation ASA, Cardilottiem, Therapeutic [facility] Dr. Nunez recommends bridging to Coumadin. However patient to be leaving to go back to her country of [place] on 10/07/17. There is NO guarantee that she will be able to arrange for INR measurements. Medicine Team: speak with with [employer] to see if Xarelto 20 mg PO 1x/day prescription can be arranged for patient PRIOR to her discharge and speak with Dr. Nunez to see if this is ok with him. 3). HTN On Olmesartan/Amlodipine/HCTZ combination at home Lars Suarez while in-patient 4). Possible URI There was NO cervical lymphadenopathy, NO pharyngeal erythema/exudate on exam 09/25/17. She was started on Azithromycin by weekend Medicine Team and this should be continued for a total of 5 days 5). DM 2 HgBA1C is 6.9 Metformin 500 mg PO 2x/day (breakfast and dinner) starting 09/26/17 Crestor 5 mg PO HS and when ready should be discharged on Simvastatin 10 mg PO HS for cardiovascular protection Already on ARB (Cozaar) above for Renal protection She will need to be instructed to follow up with Podiatry and Opthalmology in [place] Dietary Consult for Diabetes Diet instruction ordered Hypoglycemia Protocol RISS ACHS Disposition: I believe the patient can be discharge as long as issue concerning oral anticoagulation as mentioned above in Assessment #2 is addressed. Parmjit Stewart D.O,
--- NOTE | 2017-09-25 21:52 | CARD ---
APPROVED REPORT EXAM: Two-dimensional and M-mode echocardiogram with Doppler and color Doppler. Other Information Quality : GoodRhythm : INDICATION Atrial Fibrillation Chest Pain Congestive Heart Failure Palpitations MITRAL STENOSIS RISK FACTORS Hypertension 2D DIMENSIONS IVSd0.8 (0.7-1.1cm)LVDd4.4 (3.9-5.9cm) PWd1.1 (0.7-1.1cm)LVDs3.0 (2.5-4.0cm) FS (%) 31.2 %LVEF (%)59.2 (>50%) M-Mode DIMENSIONS Left Atrium (MM)5.84 (2.5-4.0cm)Aortic Root2.83 (2.2-3.7cm) Aortic Cusp Exc.2.07 (1.5-2.0cm) Aortic Valve AI P 1/2 [id number] Mitral Valve MV E Fryeraae732.6cm/sMV E Peak Gr.40mmHgMV E Mean Gr.22mmHg MV [id number]/A ratio0.0MVA (PHT)1.08cm2 TDI E/Lateral E'0.0E/Medial E'0.0 Tricuspid Valve TR Peak [id number]/sTR Peak Gr.52vfWhSOFJ74cwIr LEFT VENTRICLE The left ventricle is normal size. There is normal left ventricular wall thickness. Left ventricle systolic functionsystolic function is normal. The Ejection Fraction is 55-60%. There is normal LV segmental wall motion. The left ventricular diastolic function is normal. No left ventricle thrombus noted on this study. RIGHT VENTRICLE The right ventricle is normal size. The right ventricular systolic function is normal. ATRIA The left atrium is severely dilated. The right atrium is severely dilated. AORTIC VALVE The aortic valve is moderately thickened. The aortic valve is trileaflet. There is mild to moderate aortic regurgitation. There is no aortic valvular stenosis. There is no aortic valvular vegetation. MITRAL VALVE Mitral annular calcification is moderate to severe. The mitral valve leaflets are thickened and calcified. There is no evidence of mitral valve prolapse. There is moderate mitral valve stenosis. Calculated mitral valve area is 1.08 cm2 with maximum pressure gradient of 40 mmHg and mean pressure gradient of 22 mmHg. Mitral regurgitation is mild to moderate. TRICUSPID VALVE The tricuspid valve is normal in structure. There is severe tricuspid regurgitation. Right ventricular systolic pressure is estimated at greater than 60 mmHg. There is severe pulmonary hypertension. There is no tricuspid valve prolapse or vegetation. There is no tricuspid valve stenosis. PULMONIC VALVE The pulmonary valve is normal in structure. There is mild to moderate pulmonic valvular regurgitation. There is no pulmonic valvular stenosis. GREAT VESSELS The aortic root is normal in size. The IVC collapses <50% with inspiration. PERICARDIAL EFFUSION There is no pericardial effusion. There is no pleural effusion. <Conclusion> The left ventricle is normal size. Left ventricle systolic function is normal. The Ejection Fraction is 55-60%. The right ventricle is normal size. The right ventricular systolic function is normal. The right atrium is severely dilated. The left atrium is severely dilated. There is mild to moderate aortic regurgitation. There is moderate mitral valve stenosis. Calculated mitral valve area is 1.08 cm2 with maximum pressure gradient of 40 mmHg and mean pressure gradient of 22 mmHg. Mitral regurgitation is mild to moderate. There is severe tricuspid regurgitation. There is severe pulmonary hypertension. There is mild to moderate pulmonic valvular regurgitation.
[2017-09-26] MEDS: Ipratropium 0.02% Inhal Soln (0.5 mg/2.5 ml) UD IH SCH ×4 (01:09→19:41)
[2017-09-26] MEDS: (Novolin R) Insulin Human Regular 100 units/ml vial SC SCH ×4 (07:43→21:46)
[2017-09-26 07:46] LABS: ALB/GLOB RATIO 1.1 (1.0-2.1); ALBUMIN 3.7 g/dL (3.5-5.0); ALT/SGPT 23 U/L (9-52); AST/SGOT 21 U/L (14-36); BLOOD UREA NITROGEN 13 mg/dL (7-17); CALCIUM 7.8 mg/dl (8.6-10.4); GFR AFRICAN-AMERICAN > 60; GFR NON-AFRICAN AMERICAN > 60
[2017-09-26] MEDS: Enoxaparin 100 mg Syringe SC SCH ×2 (09:36→21:31)
[2017-09-26 14:34] LABS: BASO # 0.1 K/uL (0.0-0.2); BASO % 1.1 % (0.0-2.0); EOS # 0.3 K/uL (0.0-0.7); EOS % 3.6 % (0.0-4.0); HEMOGLOBIN 13.5 g/dL (11.0-16.0); LYMPH # 2.2 K/uL (1.0-4.3); LYMPH % 26.1 % (20.0-40.0); MEAN CELL VOLUME 92.2 fL (81.0-99.0); MEAN CORPUSCULAR HEMOGLOBIN 30.8 pg (27.0-31.0); MEAN CORPUSCULAR HGB CONC 33.4 g/dL (33.0-37.0); MONO # 0.8 K/uL (0.0-0.8); MONO % 9.7 % (0.0-10.0); NEUT # 4.9 K/uL (1.8-7.0); NEUT % 59.5 % (50.0-75.0); NRBC % 0.1 % (0.0-2.0); RBC 4.36 Mil/uL (3.80-5.20); WHITE BLOOD COUNT 8.3 K/uL (4.8-10.8)
[2017-09-26 14:39] LABS: INR 1.2; PROTHROMBIN TIME 13.5 SECONDS (9.7-12.2)
[2017-09-26 15:01] LABS: ALB/GLOB RATIO 1.1 (1.0-2.1); ALBUMIN 4.3 g/dL (3.5-5.0); ALT/SGPT 29 U/L (9-52); AST/SGOT 37 U/L (14-36); BLOOD UREA NITROGEN 13 mg/dL (7-17); CALCIUM 8.2 mg/dl (8.6-10.4); GFR AFRICAN-AMERICAN > 60; GFR NON-AFRICAN AMERICAN > 60
--- NOTE | 2017-09-26 18:26 | CP.PCM.PN ---
<Viraj Bowser - Last Filed: 09/26/17 18:18> Subjective - Date & Time of Evaluation Date of Evaluation: 09/26/17 Time of Evaluation: 18:18 - Subjective Subjective: Patient has been seen and examined. No overnight events reported. Denies any SOB and her cough has improved. Objective - Vital Signs/Intake and Output Vital Signs (last 24 hours): Temp Pulse Resp BP Pulse Ox 98.4 F 74 20 116/78 95 09/26/17 15:00 09/26/17 16:38 09/26/17 15:00 09/26/17 15:00 09/26/17 15:00 Intake and Output: 09/26/17 09/26/17 06:59 18:59 Intake Total 720 Balance 720 - Medications Medications: Current Medications Aspirin (Aspirin Chewable) 81 mg PO DAILY [facility] Last Admin: 09/26/17 09:36 Dose: 81 mg Azithromycin (Zithromax) 500 mg PO DAILY [facility] Last Admin: 09/26/17 09:37 Dose: 500 mg Dextrose (Dextrose 50% Inj) 0 ml IV STAT PRN; Protocol PRN Reason: Hypoglycemia Protocol Dextrose (Glutose 15) 0 gm PO ONCE PRN; Protocol PRN Reason: Hypoglycemia Protocol Diltiazem HCl (Cardizem) 60 mg PO QID [facility] Last Admin: 09/26/17 17:31 Dose: 60 mg Enoxaparin Sodium (Lovenox) 90 mg SC Q12 [facility] Last Admin: 09/26/17 09:36 Dose: 90 mg Famotidine (Pepcid) 20 mg PO BID [facility] Last Admin: 09/26/17 17:31 Dose: 20 mg Furosemide (Lasix) 20 mg IVP DAILY [facility] Last Admin: 09/26/17 09:36 Dose: 20 mg Glucagon (Glucagen Diagnostic Kit) 0 mg IM STAT PRN; Protocol PRN Reason: Hypoglycemia Protocol Dextrose (Dextrose 5% In Water 1000 Ml) 1,000 mls @ 0 mls/hr IV .Q0M PRN; Protocol; Per Protocol PRN Reason: Hypoglycemia Protocol Insulin Human Regular (Novolin R) 0 unit SC ACHS [facility] PRN Reason: Protocol Last Admin: 09/26/17 16:43 Dose: Not Given Ipratropium [place] (Atrovent) 0.5 mg IH RQ6 [facility] Last Admin: 09/26/17 13:25 Dose: 0.5 mg Losartan Potassium (Cozaar) 25 mg PO DAILY [facility] Last Admin: 09/26/17 09:36 Dose: 25 mg Metformin HCl (Glucophage) 500 mg PO BID [facility] Last Admin: 09/26/17 17:31 Dose: 500 mg Rosuvastatin Calcium (Crestor) 5 mg PO HS [facility] Last Admin: 09/25/17 21:18 Dose: 5 mg - Labs Labs: 09/26/17 14:26 09/26/17 14:26 PT 13.5 SECONDS (9.7-12.2) H 09/26/17 14:26 INR 1.2 09/26/17 14:26 APTT 46 SECONDS (21-34) H 09/26/17 14:26 - Additional Findings Additional findings: - Constitutional Appears: Non-toxic, No Acute Distress - Eye Exam Eye Exam: Normal appearance Pupil Exam: NORMAL ACCOMODATION - Respiratory Exam Respiratory Exam: Clear to Ausculation Bilateral. absent: Rales, Rhonchi, Wheezes - Cardiovascular Exam Cardiovascular Exam: REGULAR RHYTHM, RRR, +S1, +S2. absent: Gallop, Rubs - GI/Abdominal Exam GI & Abdominal Exam: Soft, Normal Bowel Sounds. absent: Tenderness - Extremities Exam Extremities Exam: Normal Inspection. absent: Pedal Edema - Back Exam Back Exam: NORMAL INSPECTION - Psychiatric Exam Psychiatric exam: Normal Affect, Normal Mood Assessment and Plan - Assessment and Plan (Free Text) Plan: CHF exacerbation 09/24: Day 3 of IV Zithromax, continue Lasix, blood and urine cultures negative. lipid panel and TSH are unremarkable, Hba1c is pending. ECHO (09/23/17): mild LV dysfunction. severe bilateral atrial dilatation. moderate to severe mitral stenosis. severe pulmonary HTN. cough secondary to CHF exacerbation v infectious process BNP: 1120 Azithromycin 500mg IVBP daily Lasix 20mg ivp daily Ipratropium q6h prn Blood Cultures - NEGATIVE, Urine Culture - Probable Contamination (Patient has no urinary symptoms) TSH and Lipid Panel - WNL HgBA1c = 6.9 cardiology consulted, Dr. Nunez, help appreciated -recommends rate control, starting coumadin, SW eval for medications and clinic follow up. Valvular A-fib 09/24: Rate is well controlled, continue theraputic Lovenox to be bridged to Coumadin tomorrow in the AM. INR today is 1.2 EKG: A fib with RVR at 120 bpm Cardizem 60mg po QID Lovenox 90mg sc q12h ASA 81 mg po daily ECHO results as stated above. Cardiology consulted, Dr. Nunez- help appreciated HTN 09/24: Will discharge with combination medication. Losartan 25mg po daily (was on combo pill at home: Olmesartan/Amlodipine/HCTZ) monitor BP and adjust accordingly DM 2 HgBA1C is 6.9 Metformin 500 mg PO 2x/day (breakfast and dinner) starting 09/26/17 Crestor 5 mg PO HS and when ready should be discharged on Simvastatin 10 mg PO HS for cardiovascular protection Already on ARB (Cozaar) above for Renal protection She will need to be instructed to follow up with Podiatry and Opthalmology in [place] Dietary Consult for Diabetes Diet instruction ordered Hypoglycemia Protocol RISS ACHS Prophylaxis Pepcid 20mg po BID Lovenox 90mg sc q12h Dispo: Will likely leave tomorrow AM. Patient needs to be bridged to Coumadin Patient discussed with Attending Viraj Bowser - PGY1 <Mame Schmitt V - Last Filed: 09/28/17 22:32> Objective - Vital Signs/Intake and Output Vital Signs (last 24 hours): Temp Pulse Resp BP Pulse Ox 98 F 77 20 116/74 97 09/28/17 15:00 09/28/17 16:33 09/28/17 15:00 09/28/17 15:00 09/28/17 15:00 - Medications Medications: Current Medications Aspirin (Aspirin Chewable) 81 mg PO DAILY [facility] Last Admin: 09/28/17 09:38 Dose: 81 mg Dextrose (Dextrose 50% Inj) 0 ml IV STAT PRN; Protocol PRN Reason: Hypoglycemia Protocol Dextrose (Glutose 15) 0 gm PO ONCE PRN; Protocol PRN Reason: Hypoglycemia Protocol Diltiazem HCl (Cardizem) 60 mg PO QID [facility] Last Admin: 09/28/17 21:15 Dose: 60 mg Enoxaparin Sodium (Lovenox) 90 mg SC Q12 [facility] Last Admin: 09/28/17 21:17 Dose: 90 mg Famotidine (Pepcid) 20 mg PO BID [facility] Last Admin: 09/28/17 17:38 Dose: 20 mg Furosemide (Lasix) 20 mg IVP DAILY [facility] Last Admin: 09/28/17 09:40 Dose: 20 mg Glucagon (Glucagen Diagnostic Kit) 0 mg IM STAT PRN; Protocol PRN Reason: Hypoglycemia Protocol Dextrose (Dextrose 5% In Water 1000 Ml) 1,000 mls @ 0 mls/hr IV .Q0M PRN; Protocol; Per Protocol PRN Reason: Hypoglycemia Protocol Insulin Human Regular (Novolin R) 0 unit SC ACHS [facility] PRN Reason: Protocol Last Admin: 09/28/17 21:50 Dose: Not Given Ipratropium [place] (Atrovent) 0.5 mg IH RQ6 [facility] Last Admin: 09/28/17 20:55 Dose: 0.5 mg Losartan Potassium (Cozaar) 25 mg PO DAILY [facility] Last Admin: 09/28/17 09:38 Dose: 25 mg Metformin HCl (Glucophage) 500 mg PO BID [facility] Last Admin: 09/28/17 17:38 Dose: 500 mg Rosuvastatin Calcium (Crestor) 5 mg PO HS [facility] Last Admin: 09/28/17 21:17 Dose: 5 mg - Labs Labs: 09/27/17 11:46 09/27/17 11:46 PT 13.2 SECONDS (9.7-12.2) H 09/28/17 06:22 INR 1.2 09/28/17 06:22 APTT 38 SECONDS (21-34) H D 09/28/17 06:22 Attending/Attestation - Attestation I have personally seen and examined this patient.: Yes I have fully participated in the care of the patient.: Yes I have reviewed all pertinent clinical information, including history, physical exam and plan: Yes Notes (Text): This is a late computer entry for 09/26/17. Patient seen, examined, and case discussed with day-time resident. Patient seen with her daughter and family friend at bedside. This is my first visit with the patient. She has history of noncompliance, known hx of congestive heart failure, vavular atrial fibrillation, diabetes. Patient is scheduled to fly back to [facility] on the . Patient denies acute symptoms at bedside. Patient cannot remember if or how much Coumadin she takes. Assessment/Plan updated below: Assessment/Plan 1) Acute on Chronic CHF exacerbation * cardiology consulted, Dr. Nunez, help appreciated * recommends rate control, starting coumadin, SW eval for medications and clinic follow up. * Patient is not eligible for NOAC since she has vavular atrial fibrillation * ECHO (09/23/17): mild LV dysfunction, severe bilateral atrial dilatation, moderate to severe mitral stenosis., severe pulmonary HTN. * BNP: 1120 * Lasix 20mg ivp daily * Cardizem 60mg po QID * ASA 81 mg po daily * Crestor 5 mg PO HS and when ready should be discharged on Simvastatin 10 mg PO HS for cardiovascular protection; due to affordability * Losartan 25mg po daily * TSH and Lipid Panel - WNL * HgBA1c = 6.9 2) Valvular A-fib * EKG: A fib with RVR at 120 bpm on admission * Cardizem 60mg po QID * Lovenox 90mg sc q12h * ASA 81 mg po daily * Patient is awaiting INR, PTT prior to starting Coumadin for today. Discussed with nursing staff to draw up. 3) Hypertension * Losartan 25mg po daily * Cardizem 60mg po QID * Monitor vital signs and adjust accordingly 4) DM 2 * HgBA1C is 6.9 * Metformin 500 mg PO 2x/day (breakfast and dinner) starting 09/26/17 * Crestor 5 mg PO HS * Losartan 25mg po daily * She will need to be instructed to follow up with Podiatry and Opthalmology in [place] * Dietary Consult for Diabetes Diet instruction ordered * Hypoglycemia Protocol * [facility] 5) Prophylaxis * Pepcid 20mg po BID * Lovenox 90mg sc q12h Dispo: Patient will need to be bridged to Coumadin. Awaiting baseline INR/PTT. Will follow-up if patient can take Lovenox injections. Patient is due to fly back to [place] on the . Patient cannot take NOAC due to valvular atrial fibrillation, must take Coumadin.
[2017-09-27] MEDS: Ipratropium 0.02% Inhal Soln (0.5 mg/2.5 ml) UD IH SCH ×4 (01:05→20:05)
[2017-09-27] MEDS: (Novolin R) Insulin Human Regular 100 units/ml vial SC SCH ×4 (07:38→22:00)
[2017-09-27] MEDS: Enoxaparin 100 mg Syringe SC SCH ×2 (09:07→21:20)
[2017-09-27 11:50] LABS: BASO # 0.1 K/uL (0.0-0.2); EOS # 0.2 K/uL (0.0-0.7); EOS % 2.9 % (0.0-4.0); HEMOGLOBIN 13.5 g/dL (11.0-16.0); LYMPH # 1.9 K/uL (1.0-4.3); LYMPH % 23.6 % (20.0-40.0); MEAN CELL VOLUME 91.4 fL (81.0-99.0); MEAN CORPUSCULAR HEMOGLOBIN 31.2 pg (27.0-31.0); MEAN CORPUSCULAR HGB CONC 34.1 g/dL (33.0-37.0); MEAN PLATELET VOLUME 8.6 fL (7.2-11.7); MONO # 0.8 K/uL (0.0-0.8); MONO % 9.4 % (0.0-10.0); NEUT # 5.1 K/uL (1.8-7.0); NEUT % 63.1 % (50.0-75.0); RBC 4.32 Mil/uL (3.80-5.20); RED CELL DISTRIBUTION WIDTH 13.5 % (11.5-14.5); WHITE BLOOD COUNT 8.1 K/uL (4.8-10.8)
[2017-09-27 12:15] LABS: ALBUMIN 4.1 g/dL (3.5-5.0); ALT/SGPT 35 U/L (9-52); AST/SGOT 31 U/L (14-36); BLOOD UREA NITROGEN 13 mg/dL (7-17); GFR AFRICAN-AMERICAN > 60; GFR NON-AFRICAN AMERICAN > 60
--- NOTE | 2017-09-27 14:41 | CP.PCM.PN ---
<Viraj Bowser - Last Filed: 09/27/17 18:05> Subjective - Date & Time of Evaluation Date of Evaluation: 09/27/17 Time of Evaluation: 08:00 - Subjective Subjective: Patient has been seen and examined. No overnight events reported. Denies any SOB. Still coughing but much improved. Reports chest tightness during her coughing fits. Objective - Vital Signs/Intake and Output Vital Signs (last 24 hours): Temp Pulse Resp BP Pulse Ox 98.1 F 76 20 171/77 H 97 09/27/17 08:25 09/27/17 08:25 09/27/17 08:25 09/27/17 09:08 09/27/17 08:25 - Medications Medications: Current Medications Aspirin (Aspirin Chewable) 81 mg PO DAILY [facility] Last Admin: 09/27/17 09:08 Dose: 81 mg Azithromycin (Zithromax) 500 mg PO DAILY [facility] Stop: 09/30/17 10:00 Last Admin: 09/27/17 09:08 Dose: 500 mg Dextrose (Dextrose 50% Inj) 0 ml IV STAT PRN; Protocol PRN Reason: Hypoglycemia Protocol Dextrose (Glutose 15) 0 gm PO ONCE PRN; Protocol PRN Reason: Hypoglycemia Protocol Diltiazem HCl (Cardizem) 60 mg PO QID [facility] Last Admin: 09/27/17 13:49 Dose: 60 mg Enoxaparin Sodium (Lovenox) 90 mg SC Q12 [facility] Last Admin: 09/27/17 09:07 Dose: 90 mg Famotidine (Pepcid) 20 mg PO BID [facility] Last Admin: 09/27/17 09:08 Dose: 20 mg Furosemide (Lasix) 20 mg IVP DAILY [facility] Last Admin: 09/27/17 09:08 Dose: 20 mg Glucagon (Glucagen Diagnostic Kit) 0 mg IM STAT PRN; Protocol PRN Reason: Hypoglycemia Protocol Hydralazine HCl (Apresoline) 10 mg IVP STAT [facility] Stop: 09/27/17 14:38 Dextrose (Dextrose 5% In Water 1000 Ml) 1,000 mls @ 0 mls/hr IV .Q0M PRN; Protocol; Per Protocol PRN Reason: Hypoglycemia Protocol Insulin Human Regular (Novolin R) 0 unit SC ACHS [facility] PRN Reason: Protocol Last Admin: 09/27/17 12:30 Dose: Not Given Ipratropium Aston (Atrovent) 0.5 mg IH RQ6 [facility] Last Admin: 09/27/17 13:11 Dose: 0.5 mg Losartan Potassium (Cozaar) 25 mg PO DAILY [facility] Last Admin: 09/27/17 09:08 Dose: 25 mg Metformin HCl (Glucophage) 500 mg PO BID [facility] Last Admin: 09/27/17 09:08 Dose: 500 mg Rosuvastatin Calcium (Crestor) 5 mg PO HS [facility] Last Admin: 09/26/17 21:32 Dose: 5 mg Warfarin Sodium (Coumadin) 5 mg PO 1800 [facility] Stop: 09/27/17 18:01 - Labs Labs: 09/27/17 11:46 09/27/17 11:46 PT 13.5 SECONDS (9.7-12.2) H 09/26/17 14:26 INR 1.2 09/26/17 14:26 APTT 46 SECONDS (21-34) H 09/26/17 14:26 - Additional Findings Additional findings: - Constitutional Appears: Non-toxic, No Acute Distress - Eye Exam Eye Exam: Normal appearance Pupil Exam: NORMAL ACCOMODATION - Respiratory Exam Respiratory Exam: Clear to Ausculation Bilateral. absent: Rales, Rhonchi, Wheezes - Cardiovascular Exam Cardiovascular Exam: IRREGULAR RHYTHM, +S1, +S2. absent: Gallop, Rubs - GI/Abdominal Exam GI & Abdominal Exam: Soft, Normal Bowel Sounds. absent: Tenderness - Extremities Exam Extremities Exam: Normal Inspection. absent: Pedal Edema - Back Exam Back Exam: NORMAL INSPECTION - Psychiatric Exam Psychiatric exam: Normal Affect, Normal Mood Assessment and Plan - Assessment and Plan (Free Text) Assessment: 62 year old female with PMHx of Valvular A-fib, HTN, and DMII admitted for acute on chronic CHF exacerbation Plan: CHF exacerbation 09/24: Day 3 of IV Zithromax, continue Lasix, blood and urine cultures negative. lipid panel and TSH are unremarkable, Hba1c is pending. ECHO (09/23/17): mild LV dysfunction. severe bilateral atrial dilatation. moderate to severe mitral stenosis. severe pulmonary HTN. cough secondary to CHF exacerbation v infectious process BNP: 1120 Lasix 20mg ivp daily Ipratropium q6h prn Blood Cultures - NEGATIVE, Urine Culture - Probable Contamination (Patient has no urinary symptoms) TSH and Lipid Panel - WNL HgBA1c = 6.9 cardiology consulted, Dr. Nunez, help appreciated -recommends rate control, starting coumadin, [facility] flood for medications and clinic follow up. Valvular A-fib 09/24: Rate is well controlled, continue theraputic Lovenox to be bridged to Coumadin 5 today at 18:00. INR today is 1.2 EKG: A fib with RVR at 120 bpm Cardizem 60mg po QID Lovenox 90mg sc q12h ASA 81 mg po daily ECHO results as stated above. Cardiology consulted, Dr. Nunez- help appreciated HTN 09/24: Will discharge with combination medication. Losartan 25mg po daily. Cardizem 60 PO QID (was on combo pill at home: Olmesartan/HCTZ) monitor BP and adjust accordingly DM 2 HgBA1C is 6.9 Metformin 500 mg PO 2x/day (breakfast and dinner) starting 09/26/17 Crestor 5 mg PO HS and when ready should be discharged on Simvastatin 10 mg PO HS for cardiovascular protection Already on ARB (Cozaar) above for Renal protection She will need to be instructed to follow up with Podiatry and Opthalmology in [place] Dietary Consult for Diabetes Diet instruction ordered Hypoglycemia Protocol RISS ACHS Prophylaxis Pepcid 20mg po BID Lovenox 90mg sc q12h Dispo: Will likely leave tomorrow AM. Patient needs to be bridged to Coumadin Patient discussed with Attending Viraj Bowser - PGY1 <Parmjit Stewart - Last Filed: 09/27/17 20:09> Objective - Vital Signs/Intake and Output Vital Signs (last 24 hours): Temp Pulse Resp BP Pulse Ox 98.6 F 83 20 106/68 96 09/27/17 15:00 09/27/17 18:29 09/27/17 15:00 09/27/17 18:29 09/27/17 15:00 - Medications Medications: Current Medications Aspirin (Aspirin Chewable) 81 mg PO DAILY [facility] Last Admin: 09/27/17 09:08 Dose: 81 mg Dextrose (Dextrose 50% Inj) 0 ml IV STAT PRN; Protocol PRN Reason: Hypoglycemia Protocol Dextrose (Glutose 15) 0 gm PO ONCE PRN; Protocol PRN Reason: Hypoglycemia Protocol Diltiazem HCl (Cardizem) 60 mg PO QID [facility] Last Admin: 09/27/17 18:31 Dose: 60 mg Enoxaparin Sodium (Lovenox) 90 mg SC Q12 [facility] Last Admin: 09/27/17 09:07 Dose: 90 mg Famotidine (Pepcid) 20 mg PO BID [facility] Last Admin: 09/27/17 18:25 Dose: 20 mg Furosemide (Lasix) 20 mg IVP DAILY [facility] Last Admin: 09/27/17 09:08 Dose: 20 mg Glucagon (Glucagen Diagnostic Kit) 0 mg IM STAT PRN; Protocol PRN Reason: Hypoglycemia Protocol Hydrochlorothiazide (Microzide) 12.5 mg PO DAILY [facility] Dextrose (Dextrose 5% In Water 1000 Ml) 1,000 mls @ 0 mls/hr IV .Q0M PRN; Protocol; Per Protocol PRN Reason: Hypoglycemia Protocol Insulin Human Regular (Novolin R) 0 unit SC ACHS [facility] PRN Reason: Protocol Last Admin: 09/27/17 18:26 Dose: Not Given Ipratropium Aston (Atrovent) 0.5 mg IH RQ6 [facility] Last Admin: 09/27/17 13:11 Dose: 0.5 mg Losartan Potassium (Cozaar) 25 mg PO DAILY [facility] Last Admin: 09/27/17 09:08 Dose: 25 mg Metformin HCl (Glucophage) 500 mg PO BID [facility] Last Admin: 09/27/17 18:25 Dose: 500 mg Rosuvastatin Calcium (Crestor) 5 mg PO HS [facility] Last Admin: 09/26/17 21:32 Dose: 5 mg - Labs Labs: 09/27/17 11:46 09/27/17 11:46 PT 13.6 SECONDS (9.7-12.2) H 09/27/17 14:37 INR 1.2 09/27/17 14:37 APTT 46 SECONDS (21-34) H 09/26/17 14:26 Attending/Attestation - Attestation I have personally seen and examined this patient.: Yes I have fully participated in the care of the patient.: Yes I have reviewed all pertinent clinical information, including history, physical exam and plan: Yes Notes (Text): 09/27/17 20:05 Patient was seen and examined at 11:45 AM 09/27/17 with the help of Nurse Abarca who translated Arabic Exam, assessment and plan were gone over with the resident Also on ROS: Chest pressure has resolved NO more episodes of heart racing NO feelings of fever Cough is now more dry and less than admission NO other complaints upon FULL ROS Asssessments: 1). 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 Nunez has reviewed Echo: mild LV dysfunction, severe bilateral atrial dilatation, moderate to severe mitral stenosis, severe pulmonary HTN Lars Valentin 2). Hx Atrial Fibrillation ASA, Cardizem, Therapeutic Lovenox Started Coumadin 5 mg PO x 1 dose evening 09/27/17 Dietary Consult placed for education on Coumadin Diet Explained at length the importance of weekly INR measurement until stable once she returns to [place] on 10/07/17 as well as the dangers of bleeding while on Coumadin 3). HTN On Olmesartan/Amlodipine/HCTZ combination at home Lars Suarez while in-patient 4). Possible URI There was NO cervical lymphadenopathy, NO pharyngeal erythema/exudate on exam 09/25/17. She was started on Azithromycin by weekend Medicine Team and this should be continued for a total of 5 days 5). DM 2 HgBA1C is 6.9 Metformin 500 mg PO 2x/day (breakfast and dinner) starting 09/26/17 Crestor 5 mg PO HS and when ready should be discharged on Simvastatin 10 mg PO HS for cardiovascular protection Already on ARB (Cozaar) above for Renal protection She will need to be instructed to follow up with Podiatry and Opthalmology in [place] Dietary Consult for Diabetes Diet instruction ordered Hypoglycemia Protocol [facility] A[facility] Disposition: Once the INR approaches 2 then we will discharge patient Parmjit Stewart D.O,
[2017-09-27 14:52] LABS: INR 1.2; PROTHROMBIN TIME 13.6 SECONDS (9.7-12.2)
[2017-09-28] MEDS: Ipratropium 0.02% Inhal Soln (0.5 mg/2.5 ml) UD IH SCH ×4 (01:05→20:55)
[2017-09-28 06:48] LABS: INR 1.2; PROTHROMBIN TIME 13.2 SECONDS (9.7-12.2)
[2017-09-28] MEDS: (Novolin R) Insulin Human Regular 100 units/ml vial SC SCH ×4 (07:14→21:50)
[2017-09-28] MEDS: Enoxaparin 100 mg Syringe SC SCH ×2 (09:39→21:17)
--- NOTE | 2017-09-28 19:13 | CP.PCM.PN ---
<Viraj Bowser - Last Filed: 09/28/17 19:10> Subjective - Date & Time of Evaluation Date of Evaluation: 09/28/17 Time of Evaluation: 19:10 - Subjective Subjective: Patient has been seen and examined. No overnight events reported. no complaints at this time. Objective - Vital Signs/Intake and Output Vital Signs (last 24 hours): Temp Pulse Resp BP Pulse Ox 98 F 77 20 116/74 97 09/28/17 15:00 09/28/17 16:33 09/28/17 15:00 09/28/17 15:00 09/28/17 15:00 - Medications Medications: Current Medications Aspirin (Aspirin Chewable) 81 mg PO DAILY [facility] Last Admin: 09/28/17 09:38 Dose: 81 mg Dextrose (Dextrose 50% Inj) 0 ml IV STAT PRN; Protocol PRN Reason: Hypoglycemia Protocol Dextrose (Glutose 15) 0 gm PO ONCE PRN; Protocol PRN Reason: Hypoglycemia Protocol Diltiazem HCl (Cardizem) 60 mg PO QID [facility] Last Admin: 09/28/17 17:38 Dose: 60 mg Enoxaparin Sodium (Lovenox) 90 mg SC Q12 [facility] Last Admin: 09/28/17 09:39 Dose: 90 mg Famotidine (Pepcid) 20 mg PO BID [facility] Last Admin: 09/28/17 17:38 Dose: 20 mg Furosemide (Lasix) 20 mg IVP DAILY [facility] Last Admin: 09/28/17 09:40 Dose: 20 mg Glucagon (Glucagen Diagnostic Kit) 0 mg IM STAT PRN; Protocol PRN Reason: Hypoglycemia Protocol Dextrose (Dextrose 5% In Water 1000 Ml) 1,000 mls @ 0 mls/hr IV .Q0M PRN; Protocol; Per Protocol PRN Reason: Hypoglycemia Protocol Insulin Human Regular (Novolin R) 0 unit SC ACHS [facility] PRN Reason: Protocol Last Admin: 09/28/17 17:14 Dose: Not Given Ipratropium [place] (Atrovent) 0.5 mg IH RQ6 [facility] Last Admin: 09/28/17 14:06 Dose: Not Given Losartan Potassium (Cozaar) 25 mg PO DAILY [facility] Last Admin: 09/28/17 09:38 Dose: 25 mg Metformin HCl (Glucophage) 500 mg PO BID [facility] Last Admin: 09/28/17 17:38 Dose: 500 mg Rosuvastatin Calcium (Crestor) 5 mg PO HS [facility] Last Admin: 09/27/17 21:24 Dose: 5 mg - Labs Labs: 09/27/17 11:46 09/27/17 11:46 PT 13.2 SECONDS (9.7-12.2) H 09/28/17 06:22 INR 1.2 09/28/17 06:22 APTT 38 SECONDS (21-34) H D 09/28/17 06:22 - Additional Findings Additional findings: - Constitutional Appears: Non-toxic, No Acute Distress - Eye Exam Eye Exam: Normal appearance Pupil Exam: NORMAL ACCOMODATION - Respiratory Exam Respiratory Exam: Clear to Ausculation Bilateral. absent: Rales, Rhonchi, Wheezes - Cardiovascular Exam Cardiovascular Exam: IRREGULAR RHYTHM, +S1, +S2. absent: Gallop, Rubs - GI/Abdominal Exam GI & Abdominal Exam: Soft, Normal Bowel Sounds. absent: Tenderness - Extremities Exam Extremities Exam: Normal Inspection. absent: Pedal Edema - Back Exam Back Exam: NORMAL INSPECTION - Psychiatric Exam Psychiatric exam: Normal Affect, Normal Mood Assessment and Plan - Assessment and Plan (Free Text) Assessment: 62 year old female with PMHx of Valvular A-fib, HTN, and DMII admitted for acute on chronic CHF exacerbation Plan: CHF exacerbation 09/24: Day 3 of IV Zithromax, continue Lasix, blood and urine cultures negative. lipid panel and TSH are unremarkable, Hba1c is pending. ECHO (09/23/17): mild LV dysfunction. severe bilateral atrial dilatation. moderate to severe mitral stenosis. severe pulmonary HTN. cough secondary to CHF exacerbation v infectious process BNP: 1120 Lasix 20mg ivp daily Ipratropium q6h prn Blood Cultures - NEGATIVE, Urine Culture - Probable Contamination (Patient has no urinary symptoms) TSH and Lipid Panel - WNL HgBA1c = 6.9 cardiology consulted, Dr. Nunez, help appreciated -recommends rate control, starting coumadin, [facility] flood for medications and clinic follow up. Valvular A-fib 09/24: Rate is well controlled, continue theraputic Lovenox to be bridged to Coumadin 5 today at 18:00. INR today is 1.2 EKG: A fib with RVR at 120 bpm Cardizem 60mg po QID Lovenox 90mg sc q12h ASA 81 mg po daily ECHO results as stated above. Cardiology consulted, Dr. Nunez- help appreciated HTN 09/24: Will discharge with combination medication. Losartan 25mg po daily. Cardizem 60 PO QID (was on combo pill at home: Olmesartan/HCTZ) monitor BP and adjust accordingly DM 2 HgBA1C is 6.9 Metformin 500 mg PO 2x/day (breakfast and dinner) starting 09/26/17 Crestor 5 mg PO HS and when ready should be discharged on Simvastatin 10 mg PO HS for cardiovascular protection Already on ARB (Cozaar) above for Renal protection She will need to be instructed to follow up with Podiatry and Opthalmology in [place] Dietary Consult for Diabetes Diet instruction ordered Hypoglycemia Protocol [facility] A[facility] Prophylaxis Pepcid 20mg po BID Lovenox 90mg sc q12h Dispo: Will likely leave tomorrow AM. Patient needs to be bridged to Coumadin Patient discussed with Attending Viraj Bowser - PGY1 <Parmjit Stewart - Last Filed: 09/28/17 19:23> Objective - Vital Signs/Intake and Output Vital Signs (last 24 hours): Temp Pulse Resp BP Pulse Ox 98 F 77 20 116/74 97 09/28/17 15:00 09/28/17 16:33 09/28/17 15:00 09/28/17 15:00 09/28/17 15:00 - Medications Medications: Current Medications Aspirin (Aspirin Chewable) 81 mg PO DAILY [facility] Last Admin: 09/28/17 09:38 Dose: 81 mg Dextrose (Dextrose 50% Inj) 0 ml IV STAT PRN; Protocol PRN Reason: Hypoglycemia Protocol Dextrose (Glutose 15) 0 gm PO ONCE PRN; Protocol PRN Reason: Hypoglycemia Protocol Diltiazem HCl (Cardizem) 60 mg PO QID [facility] Last Admin: 09/28/17 17:38 Dose: 60 mg Enoxaparin Sodium (Lovenox) 90 mg SC Q12 [facility] Last Admin: 09/28/17 09:39 Dose: 90 mg Famotidine (Pepcid) 20 mg PO BID [facility] Last Admin: 09/28/17 17:38 Dose: 20 mg Furosemide (Lasix) 20 mg IVP DAILY [facility] Last Admin: 09/28/17 09:40 Dose: 20 mg Glucagon (Glucagen Diagnostic Kit) 0 mg IM STAT PRN; Protocol PRN Reason: Hypoglycemia Protocol Dextrose (Dextrose 5% In Water 1000 Ml) 1,000 mls @ 0 mls/hr IV .Q0M PRN; Protocol; Per Protocol PRN Reason: Hypoglycemia Protocol Insulin Human Regular (Novolin R) 0 unit SC ACHS [facility] PRN Reason: Protocol Last Admin: 09/28/17 17:14 Dose: Not Given Ipratropium [place] (Atrovent) 0.5 mg IH RQ6 [facility] Last Admin: 09/28/17 14:06 Dose: Not Given Losartan Potassium (Cozaar) 25 mg PO DAILY [facility] Last Admin: 09/28/17 09:38 Dose: 25 mg Metformin HCl (Glucophage) 500 mg PO BID [facility] Last Admin: 09/28/17 17:38 Dose: 500 mg Rosuvastatin Calcium (Crestor) 5 mg PO HS [facility] Last Admin: 09/27/17 21:24 Dose: 5 mg - Labs Labs: 09/27/17 11:46 09/27/17 11:46 PT 13.2 SECONDS (9.7-12.2) H 09/28/17 06:22 INR 1.2 09/28/17 06:22 APTT 38 SECONDS (21-34) H D 09/28/17 06:22 Attending/Attestation - Attestation I have personally seen and examined this patient.: Yes I have fully participated in the care of the patient.: Yes I have reviewed all pertinent clinical information, including history, physical exam and plan: Yes Notes (Text): 09/28/17 19:21 Patient was seen and examined at 12:30 PM 09/28/17 with the help of Family Friend who translated Scottish Exam, assessment and plan were gone over with the resident Also on ROS: Chest pressure has resolved NO more episodes of heart racing NO feelings of fever Cough is no longer present NO other complaints upon FULL ROS Asssessments: 1). Heart Failure Family Educator Dr. Nunez has reviewed Echo: mild LV dysfunction, severe bilateral atrial dilatation, moderate to severe mitral stenosis, severe pulmonary HTN LasixLesliezaar 2). Hx Atrial Fibrillation ASA, Cardizem, Therapeutic Lovenox Started Coumadin on evening of 09/27/17 Dietary Consult placed for education on Coumadin Diet Explained at length the importance of weekly INR measurement until stable once she returns to [place] on 10/07/17 as well as the dangers of bleeding while on Coumadin. 3). HTN On Olmesartan/Amlodipine/HCTZ combination at home Lars Suarez while in-patient 4). Possible URI There was NO cervical lymphadenopathy, NO pharyngeal erythema/exudate on exam 09/25/17. She was started on Azithromycin by weekend Medicine Team and this should be continued for a total of 5 days 5). DM 2 HgBA1C is 6.9 Metformin 500 mg PO 2x/day (breakfast and dinner) starting 09/26/17 Crestor 5 mg PO HS and when ready should be discharged on Simvastatin 10 mg PO HS for cardiovascular protection Already on ARB (Cozaar) above for Renal protection She will need to be instructed to follow up with Podiatry and Opthalmology in [place] Dietary Consult for Diabetes Diet instruction ordered Hypoglycemia Protocol [facility] Disposition: Once the INR approaches 2 then we will discharge patient Parmjit Stewart D.O,
[2017-09-29] MEDS: Ipratropium 0.02% Inhal Soln (0.5 mg/2.5 ml) UD IH SCH ×4 (02:04→20:11)
[2017-09-29 06:26] LABS: BASO # 0.1 K/uL (0.0-0.2); BASO % 0.6 % (0.0-2.0); EOS # 0.3 K/uL (0.0-0.7); EOS % 3.5 % (0.0-4.0); HEMOGLOBIN 13.4 g/dL (11.0-16.0); LYMPH # 2.3 K/uL (1.0-4.3); LYMPH % 24.4 % (20.0-40.0); MEAN CELL VOLUME 91.4 fL (81.0-99.0); MEAN CORPUSCULAR HEMOGLOBIN 31.2 pg (27.0-31.0); MEAN CORPUSCULAR HGB CONC 34.1 g/dL (33.0-37.0); MEAN PLATELET VOLUME 8.3 fL (7.2-11.7); MONO # 0.8 K/uL (0.0-0.8); MONO % 8.7 % (0.0-10.0); NEUT # 5.9 K/uL (1.8-7.0); NEUT % 62.8 % (50.0-75.0); NRBC % 0.1 % (0.0-2.0); RBC 4.29 Mil/uL (3.80-5.20); RED CELL DISTRIBUTION WIDTH 13.2 % (11.5-14.5); WHITE BLOOD COUNT 9.3 K/uL (4.8-10.8)
[2017-09-29 06:37] LABS: INR 1.3; PROTHROMBIN TIME 14.4 SECONDS (9.7-12.2)
[2017-09-29 06:50] LABS: ALB/GLOB RATIO 1.1 (1.0-2.1); ALBUMIN 3.9 g/dL (3.5-5.0); ALT/SGPT 41 U/L (9-52); AST/SGOT 36 U/L (14-36); BLOOD UREA NITROGEN 11 mg/dL (7-17); CALCIUM 8.1 mg/dl (8.6-10.4); GFR AFRICAN-AMERICAN > 60; GFR NON-AFRICAN AMERICAN > 60
[2017-09-29] MEDS: (Novolin R) Insulin Human Regular 100 units/ml vial SC SCH ×4 (07:53→22:15)
[2017-09-29] MEDS: Enoxaparin 100 mg Syringe SC SCH ×2 (09:15→22:16)
--- NOTE | 2017-09-29 10:09 | CP.PCM.PN ---
<Gayathri Wilcox - Last Filed: 09/29/17 18:12> Subjective - Date & Time of Evaluation Date of Evaluation: 09/29/17 Time of Evaluation: 07:00 - Subjective Subjective: PGY1- Medicine Note- Dr. Stewart's Service Patient seen and examined at bedside and in no acute distress. Patient has no complaints. Patient denies shortness of breath, chest pain, palpitations, abdominal pain, nausea, vomiting, or constipation. Objective - Vital Signs/Intake and Output Vital Signs (last 24 hours): Temp Pulse Resp BP Pulse Ox 97.8 F 93 H 20 134/74 98 09/29/17 07:30 09/29/17 09:09 09/29/17 07:30 09/29/17 09:15 09/29/17 07:30 Intake and Output: 09/29/17 09/29/17 06:59 18:59 Intake Total 120 Balance 120 - Medications Medications: Current Medications Aspirin (Aspirin Chewable) 81 mg PO DAILY [facility] Last Admin: 09/29/17 09:15 Dose: 81 mg Dextrose (Dextrose 50% Inj) 0 ml IV STAT PRN; Protocol PRN Reason: Hypoglycemia Protocol Dextrose (Glutose 15) 0 gm PO ONCE PRN; Protocol PRN Reason: Hypoglycemia Protocol Diltiazem HCl (Cardizem) 60 mg PO QID [facility] Last Admin: 09/29/17 09:15 Dose: 60 mg Enoxaparin Sodium (Lovenox) 90 mg SC Q12 [facility] Last Admin: 09/29/17 09:15 Dose: 90 mg Famotidine (Pepcid) 20 mg PO BID [facility] Last Admin: 09/29/17 09:15 Dose: 20 mg Furosemide (Lasix) 20 mg IVP DAILY [facility] Last Admin: 09/29/17 09:15 Dose: 20 mg Glucagon (Glucagen Diagnostic Kit) 0 mg IM STAT PRN; Protocol PRN Reason: Hypoglycemia Protocol Dextrose (Dextrose 5% In Water 1000 Ml) 1,000 mls @ 0 mls/hr IV .Q0M PRN; Protocol; Per Protocol PRN Reason: Hypoglycemia Protocol Insulin Human Regular (Novolin R) 0 unit SC ACHS [facility] PRN Reason: Protocol Last Admin: 09/29/17 07:53 Dose: Not Given Ipratropium [place] (Atrovent) 0.5 mg IH RQ6 [facility] Last Admin: 09/29/17 08:44 Dose: 0.5 mg Losartan Potassium (Cozaar) 25 mg PO DAILY [facility] Last Admin: 09/29/17 09:15 Dose: 25 mg Metformin HCl (Glucophage) 500 mg PO BID [facility] Last Admin: 09/29/17 09:15 Dose: 500 mg Rosuvastatin Calcium (Crestor) 5 mg PO HS [facility] Last Admin: 09/28/17 21:17 Dose: 5 mg Warfarin Sodium (Coumadin) 5 mg PO 1800 [facility] Stop: 09/29/17 18:01 - Labs Labs: 09/29/17 06:20 09/29/17 06:20 PT 14.4 SECONDS (9.7-12.2) H 09/29/17 06:20 INR 1.3 09/29/17 06:20 APTT 38 SECONDS (21-34) H D 09/28/17 06:22 - Constitutional Appears: Non-toxic, No Acute Distress - Head Exam Head Exam: ATRAUMATIC, NORMAL INSPECTION, NORMOCEPHALIC - Eye Exam Eye Exam: EOMI, Normal appearance - Respiratory Exam Respiratory Exam: Clear to Ausculation Bilateral, NORMAL BREATHING PATTERN. absent: Rales, Rhonchi, Wheezes, Respiratory Distress, Stridor - Cardiovascular Exam Cardiovascular Exam: Irregular Rhythm, +S1 - GI/Abdominal Exam GI & Abdominal Exam: Soft, Normal Bowel Sounds. absent: Tenderness - Extremities Exam Extremities Exam: Normal Inspection. absent: Pedal Edema, Tenderness - Neurological Exam Neurological Exam: Alert, Awake, Oriented x3 - Psychiatric Exam Psychiatric exam: Normal Affect, Normal Mood - Skin Skin Exam: Intact, Normal Color, Warm Assessment and Plan - Assessment and Plan (Free Text) Assessment: CHF exacerbation lipid panel and TSH are unremarkable blood and urine cultures negative ECHO (09/23/17): mild LV dysfunction. severe bilateral atrial dilatation. moderate to severe mitral stenosis. severe pulmonary HTN. cough secondary to CHF exacerbation v infectious process BNP: 1120 Lasix 20mg ivp daily Ipratropium q6h prn Blood Cultures - NEGATIVE, Urine Culture - Probable Contamination (Patient has no urinary symptoms) TSH and Lipid Panel - WNL HgBA1c = 6.9 cardiology consulted, Dr. Nunez, help appreciated -recommends rate control, starting coumadin, SW remigio for medications and clinic follow up. Coumadin 5mg po daily, INR: 1.3 on 09/29/17 Valvular A-fib 09/24: Rate is well controlled, continue theraputic Lovenox to be bridged to Coumadin 5 today at 18:00. INR today is 1.3 EKG: A fib with RVR at 120 bpm Cardizem 60mg po QID Lovenox 90mg sc q12h ASA 81 mg po daily ECHO results as stated above. Cardiology consulted, Dr. Nunez- help appreciated HTN Losartan 25mg po daily. Cardizem 60 PO QID (was on combo pill at home: Olmesartan/HCTZ) monitor BP and adjust accordingly DM 2 HgBA1C is 6.9 Metformin 500 mg PO 2x/day (breakfast and dinner) starting 09/26/17 Crestor 5 mg PO HS and when ready should be discharged on Simvastatin 10 mg PO HS for cardiovascular protection Already on ARB (Cozaar) above for Renal protection She will need to be instructed to follow up with Podiatry and Opthalmology in [place] Dietary Consult for Diabetes Diet instruction ordered Hypoglycemia Protocol RISS ACHS Nausea Zofran PRN Prophylaxis Pepcid 20mg po BID Lovenox 90mg sc q12h Patient discussed with Attending <Parmjit Stewart - Last Filed: 09/29/17 20:40> Objective - Vital Signs/Intake and Output Vital Signs (last 24 hours): Temp Pulse Resp BP Pulse Ox 98.4 F 83 18 128/77 97 09/29/17 15:55 09/29/17 18:00 09/29/17 15:55 09/29/17 18:00 09/29/17 15:55 - Medications Medications: Current Medications Aspirin (Aspirin Chewable) 81 mg PO DAILY [facility] Last Admin: 09/29/17 09:15 Dose: 81 mg Dextrose (Dextrose 50% Inj) 0 ml IV STAT PRN; Protocol PRN Reason: Hypoglycemia Protocol Dextrose (Glutose 15) 0 gm PO ONCE PRN; Protocol PRN Reason: Hypoglycemia Protocol Diltiazem HCl (Cardizem) 60 mg PO QID [facility] Last Admin: 09/29/17 18:13 Dose: 60 mg Enoxaparin Sodium (Lovenox) 90 mg SC Q12 [facility] Last Admin: 09/29/17 09:15 Dose: 90 mg Famotidine (Pepcid) 20 mg PO BID [facility] Last Admin: 09/29/17 18:13 Dose: 20 mg Furosemide (Lasix) 20 mg IVP DAILY [facility] Last Admin: 09/29/17 09:15 Dose: 20 mg Glucagon (Glucagen Diagnostic Kit) 0 mg IM STAT PRN; Protocol PRN Reason: Hypoglycemia Protocol Dextrose (Dextrose 5% In Water 1000 Ml) 1,000 mls @ 0 mls/hr IV .Q0M PRN; Protocol; Per Protocol PRN Reason: Hypoglycemia Protocol Insulin Human Regular (Novolin R) 0 unit SC ACHS [facility] PRN Reason: Protocol Last Admin: 09/29/17 18:13 Dose: Not Given Ipratropium [place] (Atrovent) 0.5 mg IH RQ6 [facility] Last Admin: 09/29/17 20:11 Dose: 0.5 mg Losartan Potassium (Cozaar) 25 mg PO DAILY [facility] Last Admin: 09/29/17 09:15 Dose: 25 mg Metformin HCl (Glucophage) 500 mg PO BID [facility] Last Admin: 09/29/17 18:13 Dose: 500 mg Ondansetron HCl (Zofran Inj) 4 mg IVP Q6H PRN PRN Reason: Nausea/Vomiting Rosuvastatin Calcium (Crestor) 5 mg PO HS [facility] Last Admin: 09/28/17 21:17 Dose: 5 mg - Labs Labs: 09/29/17 06:20 09/29/17 06:20 PT 14.4 SECONDS (9.7-12.2) H 09/29/17 06:20 INR 1.3 09/29/17 06:20 APTT 38 SECONDS (21-34) H D 09/28/17 06:22 Attending/Attestation - Attestation I have personally seen and examined this patient.: Yes I have fully participated in the care of the patient.: Yes I have reviewed all pertinent clinical information, including history, physical exam and plan: Yes Notes (Text): 09/29/17 20:39 Patient was seen and examined at 12:15 PM 09/29/17 with the help of Family Friend who translated Arabic Exam, assessment and plan were gone over with the resident Also on ROS: Chest pressure has resolved NO more episodes of heart racing NO feelings of fever Cough is no longer present Some Low Back Pain nonradiating (+) Nause earlier today NO other complaints upon FULL ROS Asssessments: 1). 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 Hx Atrial Fibrillation ASA, Cardizem, Therapeutic Lovenox Started Coumadin on evening of 09/27/17 Dietary Consult placed for education on Coumadin Diet Explained at length (again) the importance of weekly INR measurement until stable once she returns to [place] on 10/07/17 as well as the dangers of bleeding while on Coumadin. 3). HTN On Olmesartan/Amlodipine/HCTZ combination at home Lars Suarez while in-patient 4). Possible URI There was NO cervical lymphadenopathy, NO pharyngeal erythema/exudate on exam 09/25/17. She was started on Azithromycin by weekend Medicine and this was discontinued. 5). DM 2 HgBA1C is 6.9 Metformin 500 mg PO 2x/day (breakfast and dinner) starting 09/26/17 Crestor 5 mg PO HS and when ready should be discharged on Simvastatin 10 mg PO HS for cardiovascular protection Already on ARB (Cozaar) above for Renal protection She will need to be instructed to follow up with Podiatry and Opthalmology in [place] Dietary Consult for Diabetes Diet instruction ordered Hypoglycemia Protocol RISS ACHS Disposition: Once the INR approaches 2 then we will discharge patient Parmjit Stewart D.O,
[2017-09-30] MEDS: Ipratropium 0.02% Inhal Soln (0.5 mg/2.5 ml) UD IH SCH ×4 (01:12→19:04)
[2017-09-30 06:55] LABS: BASO # 0.1 K/uL (0.0-0.2); BASO % 0.7 % (0.0-2.0); EOS # 0.2 K/uL (0.0-0.7); EOS % 2.9 % (0.0-4.0); HEMOGLOBIN 13.5 g/dL (11.0-16.0); LYMPH # 1.9 K/uL (1.0-4.3); LYMPH % 23.3 % (20.0-40.0); MEAN CELL VOLUME 90.6 fL (81.0-99.0); MEAN CORPUSCULAR HEMOGLOBIN 31.8 pg (27.0-31.0); MEAN CORPUSCULAR HGB CONC 35.1 g/dL (33.0-37.0); MEAN PLATELET VOLUME 8.5 fL (7.2-11.7); MONO # 0.7 K/uL (0.0-0.8); MONO % 8.4 % (0.0-10.0); NEUT # 5.4 K/uL (1.8-7.0); NEUT % 64.7 % (50.0-75.0); NRBC % 0.2 % (0.0-2.0); RBC 4.24 Mil/uL (3.80-5.20); RED CELL DISTRIBUTION WIDTH 13.4 % (11.5-14.5); WHITE BLOOD COUNT 8.3 K/uL (4.8-10.8)
[2017-09-30 06:57] LABS: INR 1.3; PROTHROMBIN TIME 15.2 SECONDS (9.7-12.2)
[2017-09-30 07:05] LABS: ALB/GLOB RATIO 1.1 (1.0-2.1); ALBUMIN 3.8 g/dL (3.5-5.0); ALT/SGPT 45 U/L (9-52); AST/SGOT 38 U/L (14-36); BLOOD UREA NITROGEN 12 mg/dL (7-17); CALCIUM 8.4 mg/dl (8.6-10.4); GFR AFRICAN-AMERICAN > 60; GFR NON-AFRICAN AMERICAN > 60
[2017-09-30] MEDS: Enoxaparin 100 mg Syringe SC SCH (09:16)
--- NOTE | 2017-09-30 10:52 | CP.PCM.PN ---
<Flores Mena DO - Last Filed: 09/30/17 10:47> Subjective - Date & Time of Evaluation Date of Evaluation: 09/30/17 Time of Evaluation: 10:47 - Subjective Subjective: PGY2 medicine progress note for Dr. Stewart's service Patient seen and examined. Patient states she feels much better today and denies nausea or vomiting. Patient states she was able to eat breakfast well. Patient states she ate broccoli last night with dinner and did not realize she had to avoid eating it. Discussed with patient importance of avoiding green vegetables when taking coumadin. Family at bedside and they were also informed about the need to avoid green vegetables in patient's diet. Objective - Vital Signs/Intake and Output Vital Signs (last 24 hours): Temp Pulse Resp BP Pulse Ox 97.5 F L 65 20 113/81 96 09/30/17 07:30 09/30/17 08:18 09/30/17 07:30 09/30/17 09:19 09/30/17 07:30 Intake and Output: 09/30/17 09/30/17 06:59 18:59 Intake Total 320 Balance 320 - Medications Medications: Current Medications Aspirin (Aspirin Chewable) 81 mg PO DAILY [facility] Last Admin: 09/30/17 09:15 Dose: 81 mg Dextrose (Dextrose 50% Inj) 0 ml IV STAT PRN; Protocol PRN Reason: Hypoglycemia Protocol Dextrose (Glutose 15) 0 gm PO ONCE PRN; Protocol PRN Reason: Hypoglycemia Protocol Diltiazem HCl (Cardizem) 60 mg PO QID [facility] Last Admin: 09/30/17 09:16 Dose: 60 mg Enoxaparin Sodium (Lovenox) 90 mg SC Q12 [facility] Last Admin: 09/30/17 09:16 Dose: 90 mg Famotidine (Pepcid) 20 mg PO BID [facility] Last Admin: 09/30/17 09:16 Dose: 20 mg Furosemide (Lasix) 20 mg IVP DAILY [facility] Last Admin: 09/30/17 09:19 Dose: 20 mg Glucagon (Glucagen Diagnostic Kit) 0 mg IM STAT PRN; Protocol PRN Reason: Hypoglycemia Protocol Dextrose (Dextrose 5% In Water 1000 Ml) 1,000 mls @ 0 mls/hr IV .Q0M PRN; Protocol; Per Protocol PRN Reason: Hypoglycemia Protocol Insulin Human Regular (Novolin R) 0 unit SC ACHS [facility] PRN Reason: Protocol Last Admin: 09/29/17 22:15 Dose: Not Given Ipratropium [place] (Atrovent) 0.5 mg IH RQ6 [facility] Last Admin: 09/30/17 07:05 Dose: 0.5 mg Losartan Potassium (Cozaar) 25 mg PO DAILY [facility] Last Admin: 09/30/17 09:15 Dose: 25 mg Metformin HCl (Glucophage) 500 mg PO BID [facility] Last Admin: 09/30/17 09:16 Dose: 500 mg Ondansetron HCl (Zofran Inj) 4 mg IVP Q6H PRN PRN Reason: Nausea/Vomiting Rosuvastatin Calcium (Crestor) 5 mg PO HS [facility] Last Admin: 09/29/17 22:15 Dose: 5 mg Warfarin Sodium (Coumadin) 5 mg PO 1800 [facility] Stop: 09/30/17 18:01 - Labs Labs: 09/30/17 06:34 09/30/17 06:34 PT 15.2 SECONDS (9.7-12.2) H 09/30/17 06:34 INR 1.3 09/30/17 06:34 APTT 38 SECONDS (21-34) H D 09/28/17 06:22 - Constitutional Appears: No Acute Distress - Head Exam Head Exam: ATRAUMATIC, NORMOCEPHALIC - Eye Exam Eye Exam: EOMI - ENT Exam ENT Exam: Mucous Membranes Moist - Respiratory Exam Respiratory Exam: Clear to Ausculation Bilateral, NORMAL BREATHING PATTERN - Cardiovascular Exam Cardiovascular Exam: Irregular Rhythm, +S1, +S2 - GI/Abdominal Exam GI & Abdominal Exam: Soft, Normal Bowel Sounds. absent: Tenderness - Extremities Exam Extremities Exam: Normal Inspection (trace edema, non-pitting) - Neurological Exam Neurological Exam: Alert, Awake - Psychiatric Exam Psychiatric exam: Normal Affect - Skin Skin Exam: Dry, Warm Assessment and Plan - Assessment and Plan (Free Text) Assessment: CHF exacerbation lipid panel and TSH are unremarkable blood and urine cultures negative ECHO (09/23/17): mild LV dysfunction. severe bilateral atrial dilatation. moderate to severe mitral stenosis. severe pulmonary HTN. cough secondary to CHF exacerbation v infectious process BNP: 1120 Blood Cultures - NEGATIVE, Urine Culture - Probable Contamination (Patient has no urinary symptoms) TSH and Lipid Panel - WNL HgBA1c = 6.9 cardiology consulted, Dr. Nunez, help appreciated -recommends rate control, starting coumadin, [place] flood for medications and clinic follow up. Lasix 20mg ivp daily Ipratropium q6h prn Valvular A-fib Rate is well controlled, continue therapeutic Lovenox to be bridged to Coumadin 5 today at 18:00. INR today is 1.3 patient admits to eating broccoli last night and I discussed with patient that she needs to avoid green vegetables so her INR stays in range EKG: A fib with RVR at 120 bpm Cardizem 60mg po QID Lovenox 90mg sc q12h ASA 81 mg po daily ECHO results as stated above. Cardiology consulted, Dr. Nunez- help appreciated HTN Losartan 25mg po daily. Cardizem 60 PO QID (was on combo pill at home: Olmesartan/HCTZ) monitor BP and adjust accordingly DM 2 HgBA1C is 6.9 Metformin 500 mg PO BID (breakfast and dinner) starting 09/26/17 Crestor 5 mg PO HS and when ready should be discharged on Simvastatin 10 mg PO HS for cardiovascular protection Already on ARB (Cozaar) above for Renal protection She will need to be instructed to follow up with Podiatry and Opthalmology in [place] Dietary Consult for Diabetes Diet instruction ordered Hypoglycemia Protocol RISS ACHS Nausea Zofran PRN Prophylaxis Pepcid 20mg po BID Lovenox 90mg sc q12h Patient examined and case discussed with Dr. Stewart <Parmjit Stewart - Last Filed: 09/30/17 17:48> Objective - Vital Signs/Intake and Output Vital Signs (last 24 hours): Temp Pulse Resp BP Pulse Ox 98.0 F 70 18 122/83 20 L 09/30/17 16:09 09/30/17 16:09 09/30/17 16:09 09/30/17 16:09 09/30/17 16:09 Intake and Output: 09/30/17 09/30/17 06:59 18:59 Intake Total 320 Balance 320 - Medications Medications: Current Medications Aspirin (Aspirin Chewable) 81 mg PO DAILY [facility] Last Admin: 09/30/17 09:15 Dose: 81 mg Dextrose (Dextrose 50% Inj) 0 ml IV STAT PRN; Protocol PRN Reason: Hypoglycemia Protocol Dextrose (Glutose 15) 0 gm PO ONCE PRN; Protocol PRN Reason: Hypoglycemia Protocol Diltiazem HCl (Cardizem) 60 mg PO QID [facility] Last Admin: 09/30/17 17:41 Dose: 60 mg Enoxaparin Sodium (Lovenox) 90 mg SC Q12 [facility] Famotidine (Pepcid) 20 mg PO BID [facility] Last Admin: 09/30/17 09:16 Dose: 20 mg Furosemide (Lasix) 20 mg IVP DAILY [facility] Last Admin: 09/30/17 09:19 Dose: 20 mg Glucagon (Glucagen Diagnostic Kit) 0 mg IM STAT PRN; Protocol PRN Reason: Hypoglycemia Protocol Dextrose (Dextrose 5% In Water 1000 Ml) 1,000 mls @ 0 mls/hr IV .Q0M PRN; Protocol; Per Protocol PRN Reason: Hypoglycemia Protocol Insulin Human Regular (Novolin R) 0 unit SC ACHS [facility] PRN Reason: Protocol Last Admin: 09/30/17 12:01 Dose: Not Given Ipratropium [place] (Atrovent) 0.5 mg IH RQ6 [facility] Last Admin: 09/30/17 13:54 Dose: 0.5 mg Losartan Potassium (Cozaar) 25 mg PO DAILY [facility] Last Admin: 09/30/17 09:15 Dose: 25 mg Metformin HCl (Glucophage) 500 mg PO BID [facility] Last Admin: 09/30/17 17:41 Dose: 500 mg Ondansetron HCl (Zofran Inj) 4 mg IVP Q6H PRN PRN Reason: Nausea/Vomiting Rosuvastatin Calcium (Crestor) 5 mg PO HS [facility] Last Admin: 09/29/17 22:15 Dose: 5 mg Warfarin Sodium (Coumadin) 5 mg PO 1800 [facility] Stop: 09/30/17 18:01 Last Admin: 09/30/17 17:41 Dose: 5 mg - Labs Labs: 09/30/17 06:34 09/30/17 06:34 PT 15.2 SECONDS (9.7-12.2) H 09/30/17 06:34 INR 1.3 09/30/17 06:34 APTT 38 SECONDS (21-34) H D 09/28/17 06:22 Attending/Attestation - Attestation I have personally seen and examined this patient.: Yes I have fully participated in the care of the patient.: Yes I have reviewed all pertinent clinical information, including history, physical exam and plan: Yes Notes (Text): 09/30/17 17:46 Patient was seen and examined at 10:00 AM 09/30/17 with the help of Resident who helped to translate Wolof Exam, assessment and plan were gone over with the resident Also on ROS: Chest pressure has resolved NO more episodes of heart racing NO feelings of fever Cough is no longer present Some Low Back Pain nonradiating (+) Nause has resolved NO other complaints upon FULL ROS Asssessments: 1). 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 Hx Atrial Fibrillation ASA, Cardizem, Therapeutic Lovenox Started Coumadin on evening of 09/27/17 Dietary Consult placed for education on Coumadin Diet Explained at length (again) the importance of weekly INR measurement until stable once she returns to [place] on 10/07/17 as well as the dangers of bleeding while on Coumadin. Explained and showed pictures of green leafy vegetables that she should NOT be eating. 3). HTN On Olmesartan/Amlodipine/HCTZ combination at home [place] Suarez while in-patient 4). Possible URI There was NO cervical lymphadenopathy, NO pharyngeal erythema/exudate on exam 09/25/17. She was started on Azithromycin by weekend Medicine Team and this was discontinued. 5). DM 2 HgBA1C is 6.9 Metformin 500 mg PO 2x/day (breakfast and dinner) starting 09/26/17 Crestor 5 mg PO HS and when ready should be discharged on Simvastatin 10 mg PO HS for cardiovascular protection Already on ARB (Cozaar) above for Renal protection She will need to be instructed to follow up with Podiatry and Opthalmology in [place] Dietary Consult for Diabetes Diet instruction ordered Hypoglycemia Protocol RISS ACHS Disposition: Once the INR approaches 2 then we will discharge patient Parmjit Stewart D.O,
[2017-09-30] MEDS: (Novolin R) Insulin Human Regular 100 units/ml vial SC SCH ×4 (12:01→22:04)
[2017-09-30] MEDS: Enoxaparin 120 mg Syringe SC SCH (22:03)
[2017-10-01 01:01] VITALS: RESP 20
--- NOTE | 2017-10-01 01:47 | CP.PCM.PN ---
<Viraj Bowser - Last Filed: 10/01/17 01:43> Subjective - Date & Time of Evaluation Date of Evaluation: 10/01/17 Time of Evaluation: 01:43 - Subjective Subjective: Patient has been seen and examined. No overnight events. No complaints at this time. Is aware to avoid leafy green vegetables. Objective - Vital Signs/Intake and Output Vital Signs (last 24 hours): Temp Pulse Resp BP Pulse Ox 97.5 F L 55 L 20 93/51 L 98 09/30/17 23:15 09/30/17 23:20 09/30/17 23:15 09/30/17 23:15 09/30/17 23:15 - Medications Medications: Current Medications Aspirin (Aspirin Chewable) 81 mg PO DAILY [facility] Last Admin: 09/30/17 09:15 Dose: 81 mg Dextrose (Dextrose 50% Inj) 0 ml IV STAT PRN; Protocol PRN Reason: Hypoglycemia Protocol Dextrose (Glutose 15) 0 gm PO ONCE PRN; Protocol PRN Reason: Hypoglycemia Protocol Diltiazem HCl (Cardizem) 60 mg PO QID [facility] Last Admin: 09/30/17 22:03 Dose: 60 mg Enoxaparin Sodium (Lovenox) 90 mg SC Q12 [facility] Last Admin: 09/30/17 22:03 Dose: 90 mg Famotidine (Pepcid) 20 mg PO BID [facility] Last Admin: 09/30/17 17:48 Dose: 20 mg Furosemide (Lasix) 20 mg IVP DAILY [facility] Last Admin: 09/30/17 09:19 Dose: 20 mg Glucagon (Glucagen Diagnostic Kit) 0 mg IM STAT PRN; Protocol PRN Reason: Hypoglycemia Protocol Dextrose (Dextrose 5% In Water 1000 Ml) 1,000 mls @ 0 mls/hr IV .Q0M PRN; Protocol; Per Protocol PRN Reason: Hypoglycemia Protocol Insulin Human Regular (Novolin R) 0 unit SC ACHS [facility] PRN Reason: Protocol Last Admin: 09/30/17 22:04 Dose: Not Given Ipratropium Kanaranzi (Atrovent) 0.5 mg IH RQ6 [facility] Last Admin: 09/30/17 19:04 Dose: 0.5 mg Losartan Potassium (Cozaar) 25 mg PO DAILY [facility] Last Admin: 09/30/17 09:15 Dose: 25 mg Metformin HCl (Glucophage) 500 mg PO BID [facility] Last Admin: 09/30/17 17:41 Dose: 500 mg Ondansetron HCl (Zofran Inj) 4 mg IVP Q6H PRN PRN Reason: Nausea/Vomiting Rosuvastatin Calcium (Crestor) 5 mg PO HS [facility] Last Admin: 09/30/17 22:03 Dose: 5 mg - Labs Labs: 09/30/17 06:34 09/30/17 06:34 PT 15.2 SECONDS (9.7-12.2) H 09/30/17 06:34 INR 1.3 09/30/17 06:34 APTT 38 SECONDS (21-34) H D 09/28/17 06:22 - Additional Findings Additional findings: - Constitutional Appears: No Acute Distress - Head Exam Head Exam: ATRAUMATIC, NORMOCEPHALIC - Eye Exam Eye Exam: EOMI - ENT Exam ENT Exam: Mucous Membranes Moist - Respiratory Exam Respiratory Exam: Clear to Ausculation Bilateral, NORMAL BREATHING PATTERN - Cardiovascular Exam Cardiovascular Exam: Irregular Rhythm, +S1, +S2 - GI/Abdominal Exam GI & Abdominal Exam: Soft, Normal Bowel Sounds. absent: Tenderness - Extremities Exam Extremities Exam: Normal Inspection (trace edema, non-pitting) - Neurological Exam Neurological Exam: Alert, Awake - Psychiatric Exam Psychiatric exam: Normal Affect - Skin Skin Exam: Dry, Warm Assessment and Plan - Assessment and Plan (Free Text) Assessment: 62 year old female with PMHx of Valvular A-fib, HTN, and DMII admitted for acute on chronic CHF exacerbation Plan: CHF exacerbation lipid panel and TSH are unremarkable blood and urine cultures negative ECHO (09/23/17): mild LV dysfunction. severe bilateral atrial dilatation. moderate to severe mitral stenosis. severe pulmonary HTN. cough secondary to CHF exacerbation v infectious process BNP: 1120 Blood Cultures - NEGATIVE, Urine Culture - Probable Contamination (Patient has no urinary symptoms) TSH and Lipid Panel - WNL HgBA1c = 6.9 cardiology consulted, Dr. Nunez, help appreciated -recommends rate control, starting coumadin, SW remigio for medications and clinic follow up. Lasix 20mg ivp daily Ipratropium q6h prn Valvular A-fib Rate is well controlled, continue with bridge to Coumadin. Last INR is 1.3. Follow up INR in AM and adjust Coumadin accordingly. patient admits to eating broccoli last night and I discussed with patient that she needs to avoid green vegetables so her INR stays in range EKG: A fib with RVR at 120 bpm Cardizem 60mg po QID Lovenox 90mg sc q12h ASA 81 mg po daily ECHO results as stated above. Cardiology consulted, Dr. Nunez- help appreciated HTN Losartan 25mg po daily. Cardizem 60 PO QID (was on combo pill at home: Olmesartan/HCTZ) monitor BP and adjust accordingly DM 2 HgBA1C is 6.9 Metformin 500 mg PO BID (breakfast and dinner) starting 09/26/17 Crestor 5 mg PO HS and when ready should be discharged on Simvastatin 10 mg PO HS for cardiovascular protection Already on ARB (Cozaar) above for Renal protection She will need to be instructed to follow up with Podiatry and Opthalmology in [place] Dietary Consult for Diabetes Diet instruction ordered Hypoglycemia Protocol RISS ACHS Nausea Zofran PRN Prophylaxis Pepcid 20mg po BID Lovenox 90mg sc q12h Dispo: patient to be discharged once INR is near 2.0 <Parmjit Stewart - Last Filed: 10/01/17 20:52> Objective - Vital Signs/Intake and Output Vital Signs (last 24 hours): Temp Pulse Resp BP Pulse Ox 98.1 F 59 L 20 124/76 96 10/01/17 15:00 10/01/17 15:30 10/01/17 15:00 10/01/17 15:00 10/01/17 15:00 - Medications Medications: Current Medications Aspirin (Aspirin Chewable) 81 mg PO DAILY [facility] Last Admin: 10/01/17 09:17 Dose: 81 mg Dextrose (Dextrose 50% Inj) 0 ml IV STAT PRN; Protocol PRN Reason: Hypoglycemia Protocol Dextrose (Glutose 15) 0 gm PO ONCE PRN; Protocol PRN Reason: Hypoglycemia Protocol Diltiazem HCl (Cardizem) 60 mg PO QID [facility] Last Admin: 10/01/17 17:44 Dose: 60 mg Famotidine (Pepcid) 20 mg PO BID [facility] Last Admin: 10/01/17 17:44 Dose: 20 mg Furosemide (Lasix) 20 mg PO DAILY [facility] Glucagon (Glucagen Diagnostic Kit) 0 mg IM STAT PRN; Protocol PRN Reason: Hypoglycemia Protocol Dextrose (Dextrose 5% In Water 1000 Ml) 1,000 mls @ 0 mls/hr IV .Q0M PRN; Protocol; Per Protocol PRN Reason: Hypoglycemia Protocol Insulin Human Regular (Novolin R) 0 unit SC ACHS [facility] PRN Reason: Protocol Last Admin: 10/01/17 12:13 Dose: Not Given Ipratropium Kanaranzi (Atrovent) 0.5 mg IH RQ6 [facility] Last Admin: 10/01/17 19:25 Dose: Not Given Losartan Potassium (Cozaar) 25 mg PO DAILY [facility] Last Admin: 10/01/17 09:17 Dose: 25 mg Metformin HCl (Glucophage) 500 mg PO BID [facility] Last Admin: 10/01/17 17:44 Dose: 500 mg Ondansetron HCl (Zofran Inj) 4 mg IVP Q6H PRN PRN Reason: Nausea/Vomiting Rosuvastatin Calcium (Crestor) 5 mg PO HS [facility] Last Admin: 09/30/17 22:03 Dose: 5 mg - Labs Labs: 10/01/17 07:30 10/01/17 07:30 PT 20.4 SECONDS (9.7-12.2) H D 10/01/17 07:30 INR 1.8 D 10/01/17 07:30 APTT 38 SECONDS (21-34) H D 09/28/17 06:22 Attending/Attestation - Attestation I have personally seen and examined this patient.: Yes I have fully participated in the care of the patient.: Yes I have reviewed all pertinent clinical information, including history, physical exam and plan: Yes Notes (Text): 10/01/17 20:48 Patient was seen and examined at 11:45 AM 10/01/17 with the help of Son Chris who translated Gabonese Exam, assessment and plan were gone over with the resident Also on ROS: Chest pressure has resolved NO more episodes of heart racing NO feelings of fever Cough is no longer present Some Low Back Pain nonradiating Nausea has resolved NO other complaints upon FULL ROS Asssessments: 1). Heart Failure [facility] Dr. Nunez has reviewed Echo: mild LV dysfunction, severe bilateral atrial dilatation, moderate to severe mitral stenosis, severe pulmonary HTN Lasix, Cozaar 2). Hx Atrial Fibrillation ASA, Cardizem, Therapeutic Lovenox Started Coumadin on evening of 09/27/17 INR was 1.8 on 10/01/17 therefore Lovenox was discontinued Explained at length (again) the importance of weekly INR measurement until stable once she returns to [place] on 10/07/17 as well as the dangers of bleeding while on Coumadin. Explained and showed pictures of green leafy vegetables that she should NOT be eating. I was present today 10/01/17 when Employment Consultant [employer]one went over Coumadin Diet with Son Chris and provided a handout in Gabonese 3). HTN On Olmesartan/Amlodipine/HCTZ combination at home [facility] while in-patient 4). Possible URI There was NO cervical lymphadenopathy, NO pharyngeal erythema/exudate on exam 09/25/17. She was started on Azithromycin by weekend Medicine Team and this was discontinued. 5). DM 2 HgBA1C is 6.9 Metformin 500 mg PO 2x/day (breakfast and dinner) starting 09/26/17 Crestor 5 mg PO HS and when ready should be discharged on Simvastatin 10 mg PO HS for cardiovascular protection Already on ARB (Cozaar) above for Renal protection She will need to be instructed to follow up with Podiatry and Opthalmology in [place] Dietary Consult for Diabetes Diet instruction ordered Hypoglycemia Protocol RISS ACHS Disposition: Once the INR reaches 2 then we will discharge patient. Parmjit Stewart D.O,
[2017-10-01] MEDS: Ipratropium 0.02% Inhal Soln (0.5 mg/2.5 ml) UD IH SCH ×4 (01:54→19:25)
[2017-10-01] MEDS: (Novolin R) Insulin Human Regular 100 units/ml vial SC SCH ×4 (07:16→21:32)
[2017-10-01 07:41] LABS: INR 1.8
[2017-10-01 07:48] LABS: BASO # 0.1 K/uL (0.0-0.2); BASO % 1.1 % (0.0-2.0); EOS # 0.2 K/uL (0.0-0.7); EOS % 3.1 % (0.0-4.0); HEMOGLOBIN 13.5 g/dL (11.0-16.0); LYMPH # 2.1 K/uL (1.0-4.3); LYMPH % 27.3 % (20.0-40.0); MEAN CELL VOLUME 91.6 fL (81.0-99.0); MEAN CORPUSCULAR HEMOGLOBIN 32.1 pg (27.0-31.0); MEAN CORPUSCULAR HGB CONC 35.1 g/dL (33.0-37.0); MEAN PLATELET VOLUME 8.9 fL (7.2-11.7); MONO # 0.7 K/uL (0.0-0.8); MONO % 8.7 % (0.0-10.0); NEUT # 4.6 K/uL (1.8-7.0); NEUT % 59.8 % (50.0-75.0); NRBC % 0.1 % (0.0-2.0); RBC 4.2 Mil/uL (3.80-5.20); RED CELL DISTRIBUTION WIDTH 13.4 % (11.5-14.5); WHITE BLOOD COUNT 7.7 K/uL (4.8-10.8)
[2017-10-01 08:04] LABS: ALB/GLOB RATIO 1.2 (1.0-2.1); ALT/SGPT 46 U/L (9-52); AST/SGOT 32 U/L (14-36); BLOOD UREA NITROGEN 12 mg/dL (7-17); CALCIUM 8.3 mg/dl (8.6-10.4); GFR AFRICAN-AMERICAN > 60; GFR NON-AFRICAN AMERICAN > 60
[2017-10-01 08:05] LABS: PROTHROMBIN TIME 20.4 SECONDS (9.7-12.2)
[2017-10-01] MEDS: Enoxaparin 120 mg Syringe SC SCH (09:16)
[2017-10-01] MEDS ORDERED: Enoxaparin 100 mg Syringe SC SCH (22:00)
[2017-10-02] MEDS: Ipratropium 0.02% Inhal Soln (0.5 mg/2.5 ml) UD IH SCH ×3 (02:15→13:29)
--- NOTE | 2017-10-02 05:47 | CARD ---
APPROVED REPORT EKG Measurement Heart [id number] <Conclusion> Atrial fibrillation with rapid ventricular response Left axis deviation Nonspecific ST and T wave abnormality Abnormal ECG
[2017-10-02 06:20] LABS: BASO # 0.1 K/uL (0.0-0.2); BASO % 0.8 % (0.0-2.0); EOS # 0.2 K/uL (0.0-0.7); EOS % 3.2 % (0.0-4.0); LYMPH # 1.9 K/uL (1.0-4.3); LYMPH % 25.6 % (20.0-40.0); MEAN CELL VOLUME 91.3 fL (81.0-99.0); MEAN CORPUSCULAR HEMOGLOBIN 31.6 pg (27.0-31.0); MEAN CORPUSCULAR HGB CONC 34.6 g/dL (33.0-37.0); MONO # 0.7 K/uL (0.0-0.8); MONO % 9.8 % (0.0-10.0); NEUT # 4.4 K/uL (1.8-7.0); NEUT % 60.6 % (50.0-75.0); RBC 4.13 Mil/uL (3.80-5.20); RED CELL DISTRIBUTION WIDTH 13.8 % (11.5-14.5); WHITE BLOOD COUNT 7.3 K/uL (4.8-10.8)
[2017-10-02 06:37] LABS: PROTHROMBIN TIME 22.9 SECONDS (9.7-12.2)
[2017-10-02 06:44] LABS: ALB/GLOB RATIO 1.2 (1.0-2.1); ALBUMIN 3.8 g/dL (3.5-5.0); ALT/SGPT 38 U/L (9-52); AST/SGOT 26 U/L (14-36); BLOOD UREA NITROGEN 13 mg/dL (7-17); CALCIUM 8.2 mg/dl (8.6-10.4); GFR AFRICAN-AMERICAN > 60; GFR NON-AFRICAN AMERICAN > 60
[2017-10-02] MEDS: (Novolin R) Insulin Human Regular 100 units/ml vial SC SCH (07:26)
[2017-10-02 08:18] VITALS: BP 130/85; PULSE 77; TEMP 97.9; O2SAT 96
--- NOTE | 2017-10-02 10:51 | PCM.HF ---
<Yonny Desai - Last Filed: 10/02/17 15:22> Heart Failure Core Measure - Heart Failure Left Ventricular Function to be assessed after discharge: No CARL Inhibitor Prescribed: No Contraindication/Reason for not providing: ARB prescribed. Beta-Cynthia Prescribed: None Contraindication/Reason for not providing: not indicated. Angiotensin II Receptor Cynthia Prescribed: Yes AnticoagulationTherapy for Atrial Fibrillation/Atrialflutter: Yes Aldosterone Antagonist Prescribed: No Contraindication/Reason for not providing: not indicated at this time. Hydralazine Nitrate Prescribed: No Contraindication/Reason for not providing: not indicated at this time. Implantable Cardioverter Defibrillator Therapy: No Contraindication/Reason for not providing: not indicated at this time. Cardiac Resynchronization Therapy Prescribed: No Contraindication/Reason for not providing: not indicated at this time. - Follow up Will be discharged to: Home Follow Up Date (must be within 7 days from discharge): 10/09/17 Follow Up Time: 09:00 <Mame Schmitt V - Last Filed: 10/02/17 20:58> Heart Failure Core Measure - Heart Failure Ejection Fraction: 40 % or Greater Left Ventricular Function to be assessed after discharge: Yes Contraindication/Reason for not providing: Cardizem for atrial fibrillation - Follow up Follow Up Date (must be within 7 days from discharge): 10/03/17 Follow Up Time: 09:00
--- NOTE | 2017-10-02 10:51 | CP.PCM.DIS ---
<Yonny Desai - Last Filed: 10/02/17 15:47> Provider - Provider Date of Admission: 09/23/17 14:05 Attending physician: Mame Schmitt DO Primary care physician: Had PMD in [place] Consults: Dr. Nunez - Cardiology Time Spent in preparation of Discharge (in minutes): 45 Diagnosis - Discharge Diagnosis (1) Atrial fibrillation Status: Acute Comment: Coumadin and Cardizem. f/u Cardiology (2) CHF (congestive heart failure) Status: Acute Comment: Lars Valentin (3) Cholelithiasis Status: Acute Comment: Asymptomatic. To be further evaluated outpatient Hospital Course - Lab Results Lab Results: Micro Results 09/23/17 10:45 Blood Blood Culture - Final NO GROWTH AFTER 5 DAYS 09/23/17 10:45 Blood Gram Stain - Final TEST NOT PERFORMED 09/23/17 10:15 Blood Blood Culture - Final NO GROWTH AFTER 5 DAYS 09/23/17 10:15 Blood Gram Stain - Final TEST NOT PERFORMED 09/23/17 10:23 Urine Urine Culture - Final 10-50,000 CFU/ML. MULTIPLE SPECIES. PROBABLE CONTAMINATION. Most Recent Lab Values WBC 7.3 K/uL (4.8-10.8) 10/02/17 06:10 RBC 4.13 Mil/uL (3.80-5.20) 10/02/17 06:10 Hgb 13.0 g/dL (11.0-16.0) 10/02/17 06:10 Hct 37.7 % (34.0-47.0) 10/02/17 06:10 MCV 91.3 fL (81.0-99.0) 10/02/17 06:10 MCH 31.6 pg (27.0-31.0) H 10/02/17 06:10 MCHC 34.6 g/dL (33.0-37.0) 10/02/17 06:10 RDW 13.8 % (11.5-14.5) 10/02/17 06:10 Plt Count 205 K/uL (130-400) 10/02/17 06:10 MPV 9.0 fL (7.2-11.7) 10/02/17 06:10 Neut % (Auto) 60.6 % (50.0-75.0) 10/02/17 06:10 Lymph % (Auto) 25.6 % (20.0-40.0) 10/02/17 06:10 [place] % (Auto) 9.8 % (0.0-10.0) 10/02/17 06:10 Eos % (Auto) 3.2 % (0.0-4.0) 10/02/17 06:10 Baso % (Auto) 0.8 % (0.0-2.0) 10/02/17 06:10 Neut # 4.4 K/uL (1.8-7.0) 10/02/17 06:10 Lymph # 1.9 K/uL (1.0-4.3) 10/02/17 06:10 [place] # 0.7 K/uL (0.0-0.8) 10/02/17 06:10 Eos # 0.2 K/uL (0.0-0.7) 10/02/17 06:10 Baso # 0.1 K/uL (0.0-0.2) 10/02/17 06:10 Neutrophils % (Manual) 88 % (50-75) H 09/24/17 08:50 Band Neutrophils % 2 % (0-2) 09/24/17 08:50 Lymphocytes % (Manual) 7 % (20-40) L 09/24/17 08:50 Monocytes % (Manual) 3 % (0-10) 09/24/17 08:50 Platelet Estimate Normal (NORMAL) 09/24/17 08:50 RBC Morphology Normal 09/24/17 08:50 PT 22.9 SECONDS (9.7-12.2) H 10/02/17 06:10 INR 2.0 10/02/17 06:10 APTT 38 SECONDS (21-34) H D 09/28/17 06:22 Sodium 134 mmol/L (132-148) 10/02/17 06:10 Potassium 3.8 mmol/L (3.6-5.2) 10/02/17 06:10 Chloride 95 mmol/L (98-107) L 10/02/17 06:10 Carbon Dioxide 28 mmol/L (22-30) 10/02/17 06:10 Anion Gap 15 (10-20) 10/02/17 06:10 BUN 13 mg/dL (7-17) 10/02/17 06:10 Creatinine 0.7 mg/dL (0.7-1.2) 10/02/17 06:10 Est GFR ( Amer) > 60 10/02/17 06:10 Est GFR (Non-Af Amer) > 60 10/02/17 06:10 POC Glucose (mg/dL) 93 mg/dL (65-110) 10/02/17 06:17 Random Glucose 105 mg/dL (65-105) 10/02/17 06:10 Hemoglobin A1c 6.9 % (4.2-6.5) H 09/24/17 08:50 Calcium 8.2 mg/dl (8.6-10.4) L 10/02/17 06:10 Phosphorus 3.1 mg/dL (2.5-4.5) 09/24/17 08:50 Magnesium 1.8 mg/dL (1.6-2.3) 09/24/17 08:50 Total Bilirubin 0.6 mg/dL (0.2-1.3) 10/02/17 06:10 AST 26 U/L (14-36) 10/02/17 06:10 ALT 38 U/L (9-52) 10/02/17 06:10 Alkaline Phosphatase 72 U/L (38-126) 10/02/17 06:10 Troponin I < 0.0120 ng/mL (0.00-0.120) 09/23/17 10:38 NT-Pro-B Natriuret Pep 1120 pg/mL (0-900) H 09/23/17 10:38 Total Protein 7.0 g/dL (6.3-8.3) 10/02/17 06:10 Albumin 3.8 g/dL (3.5-5.0) 10/02/17 06:10 Globulin 3.2 gm/dL (2.2-3.9) 10/02/17 06:10 Albumin/Globulin Ratio 1.2 (1.0-2.1) 10/02/17 06:10 Triglycerides 77 mg/dL (0-149) D 09/24/17 08:50 Cholesterol 132 mg/dL (0-199) 09/24/17 08:50 LDL Cholesterol Direct 82 mg/dL (0-129) 09/24/17 08:50 HDL Cholesterol 31 mg/dL (30-70) 09/24/17 08:50 TSH 3rd Generation 1.41 mIU/L (0.46-4.68) 09/24/17 08:50 Urine Color Yellow (YELLOW) 09/23/17 11:06 Urine Clarity Clear (Clear) 09/23/17 11:06 Urine pH 6.0 (5.0-8.0) 09/23/17 11:06 Ur Specific [place] 1.012 (1.003-1.030) 09/23/17 11:06 Urine Protein Negative mg/dL (NEGATIVE) 09/23/17 11:06 Urine Glucose (UA) Normal mg/dL (Normal) 09/23/17 11:06 Urine Ketones Negative mg/dL (NEGATIVE) 09/23/17 11:06 Urine Blood Negative (NEGATIVE) 09/23/17 11:06 Urine Nitrate Negative (NEGATIVE) 09/23/17 11:06 Urine Bilirubin Negative (NEGATIVE) 09/23/17 11:06 Urine Urobilinogen Normal mg/dL (0.2-1.0) 09/23/17 11:06 Ur Leukocyte Esterase Neg Dima/uL (Negative) 09/23/17 11:06 Urine WBC (Auto) 1 /hpf (0-5) 09/23/17 11:06 Urine RBC (Auto) < 1 /hpf (0-3) 09/23/17 11:06 Ur Squamous Epith Cells 3 /hpf (0-5) 09/23/17 11:06 Urine Bacteria Rare (<OCC) 09/23/17 11:06 Digoxin < 0.4 ng/mL (0.8-2.0) L 09/23/17 11:20 Influenza Typ A,B (EIA) Negative for flu a/b (NEGATIVE) 09/23/17 12:45 - Hospital Course Hospital Course: Medical History: PMD: none Cardio: Dr. Watson Morales Allergies: Denies Medications: Aspirin 81 mg PO QD, Digoxin, Olmesartan medoxomil/amlodipine/HCTZ 40 mg/5 mg/12.5 mg PMD: Unknown Surgical history: Cardiac catheterization 06/30 Family history: Denies Social history: Denies tobacco, alcohol, or recreational drug use On admission: Patient is a 62 yo female with PMH afib, HTN, CHF, cholelithiasis presenting with a 3 day history of cough with yellowish sputum production. She has been taking Dayquil and Nyquil which have relieved her symptoms minimally. She also admits to episodes of her heart racing as well as a pressure like sensation in the center of her chest when she if coughing. However, these symptoms subside when she is not coughing. Patient denies throat pain. Patient also complains of subjective fevers for the past 3 days. Of note, she recently ran out of her medications and had not taken them in about a week. She is also s/p cardiac catheterization in 06/30 which showed normal coronary arteries and moderate mitral stenosis. She denies SOB, N/V, abdominal, diarrhea. During hospital stay: While in the emergency department the patient had a chest xray that was negative for focal infiltrate, mild interstitial change, and mild subsegemental atelectasis or volume loss at the left lung base. The patient also had an echocardiogram done that showed an EF of 59.2%, mild LV dysfunction , severe pulmonary hypertension, severe bilateral atrial dilatation, and moderate to severe mitral stenosis. First troponin was negative and the accompanying EKG showed atrial fibrillation with RVR at a rate of 120bpm. Cardiology consult (Dr. Nunez) was placed. BNP was found to be 1120. Lipid and TSH levels were unremarkable. Blood and urine cultures were negative. Patient was not on any rate control medication at home. Coumadin and Cardizem were started. Patient's INR reached therapeutic level of 2.0 (goal 2-3). Patient was discharged with instructions avoid leafy green vegetables as they could interfere with medications prescribed. Patient will be traveling to [place] in one week. Patient was given instructions to follow up with a Physician there to have weekly INR checks. Spoke with one of the daughters and one of the sisters at length about avoiding certain foods. Patient instructed to establish and follow up with a PMD after discharge. Patient is to take the following medications upon discharge: 1. Aspirin 81mg by mouth daily (breakfast), disp #30, no refills 2. Lipitor 10 mg by mouth daily (dinner), disp #30, no refills 3. Cardizem 60 mg by mouth four times a day, disp #120, no refills 4. Lasix 20mg one by mouth daily (breakfast), disp #30, no refills 5. Cozaar 25 mg one by mouth daily (breakfast), disp #30, no refills 6. Metformin 500mg by mouth twice a day (breakfast and dinner), disp #60, no refills 7. Coumadin 5mg one by mouth daily (breakfast), disp #30, no refills All instructions explained to the patient and she agrees. (Please note this is just a summary. Please refer to EMR for full admission details) Discharge Exam - Head Exam Head Exam: ATRAUMATIC, NORMOCEPHALIC - Eye Exam Eye Exam: EOMI, Normal appearance, PERRL. absent: Periorbital tenderness Pupil Exam: NORMAL ACCOMODATION, PERRL. absent: Irregular, Unequal - ENT Exam ENT Exam: Mucous Membranes Moist, Normal Oropharynx - Respiratory Exam Respiratory Exam: Clear to PA & Lateral, NORMAL BREATHING PATTERN, UNREMARKABLE. absent: Decreased Breath Sounds, Rales, Rhonchi - Cardiovascular Exam Cardiovascular Exam: REGULAR RHYTHM, RRR, +S1, +S2. absent: Gallop, Rubs - GI/Abdominal Exam GI & Abdominal Exam: Normal Bowel Sounds, Unremarkable. absent: Distended, Hypoactive Bowel Sounds, Organomegaly - Extremities Exam Extremities exam: full ROM, normal inspection - Back Exam Back exam: NORMAL INSPECTION. absent: CVA tenderness (L), CVA tenderness (R), paraspinal tenderness - Neurological Exam Neurological exam: Alert, CN II-XII Intact, Oriented x3 - Psychiatric Exam Psychiatric exam: Normal Affect, Normal Mood - Skin Skin Exam: Dry, Intact, Normal Color, Warm Discharge Plan - Discharge Medications Prescriptions: Aspirin [Aspirin Chewable] 81 mg PO DAILY #30 chew Atorvastatin [Lipitor] 10 mg PO HS #30 tab diltiaZEM [Cardizem] 60 mg PO QID #120 tab Furosemide [Lasix] 20 mg PO DAILY #30 tab Losartan [Cozaar] 25 mg PO DAILY #30 tab metFORMIN [glucOPHAGE] 500 mg PO BID #60 tab - Follow Up Plan Condition: STABLE Disposition: HOME/ ROUTINE Instructions: Diltiazem (By mouth), Furosemide (By mouth), Warfarin (By mouth) , Aspirin (By mouth), Losartan (By mouth), Metformin (By mouth), Atorvastatin ( By mouth), Heart Failure (DC), Atrial Fibrillation (DC), Mitral Stenosis (DC), Heart Healthy Diet (DC), Diabetic Foot Care (DC), Basic Carbohydrate Counting ( DC), Meal Planning with the Plate Method (DC), Meal Planning with Diabetes Exchanges (DC) Additional Instructions: Patient must follow up at [facility] ([phone]). Must show up at 830 am on Tuesday October 03, 2017 for INR check. Patient will be given the following prescriptions: Lipitor 10mg QHS (30TAB, no refils), Coumadin 5mg Daily( 30Tab, no refills), Will need weekly INR checks to adjust Coumadin dosage. Aspirin 81 Daily available OTC but prescription provided. (30, No refils ). Lasix 20mg Daily (30tab, No refills), Cardizem 60 mg QID (120tab, no refills) . Cozaar 25 mg Daily (30 tab, No refills), Metformin 500mg PO BID( 60 Tabs, No refills). Patient will need refill of medication when follow up with PMD [place] or [place]. Referrals: [facility] [Outside] <Mame Schmitt V - Last Filed: 10/02/17 20:57> Provider - Provider Date of Admission: 09/23/17 14:05 Attending physician: Roger Pope MD Hospital Course - Lab Results Lab Results: Micro Results 09/23/17 10:45 Blood Blood Culture - Final NO GROWTH AFTER 5 DAYS 09/23/17 10:45 Blood Gram Stain - Final TEST NOT PERFORMED 09/23/17 10:15 Blood Blood Culture - Final NO GROWTH AFTER 5 DAYS 09/23/17 10:15 Blood Gram Stain - Final TEST NOT PERFORMED 09/23/17 10:23 Urine Urine Culture - Final 10-50,000 CFU/ML. MULTIPLE SPECIES. PROBABLE CONTAMINATION. Most Recent Lab Values WBC 7.3 K/uL (4.8-10.8) 10/02/17 06:10 RBC 4.13 Mil/uL (3.80-5.20) 10/02/17 06:10 Hgb 13.0 g/dL (11.0-16.0) 10/02/17 06:10 Hct 37.7 % (34.0-47.0) 10/02/17 06:10 MCV 91.3 fL (81.0-99.0) 10/02/17 06:10 MCH 31.6 pg (27.0-31.0) H 10/02/17 06:10 MCHC 34.6 g/dL (33.0-37.0) 10/02/17 06:10 RDW 13.8 % (11.5-14.5) 10/02/17 06:10 Plt Count 205 K/uL (130-400) 10/02/17 06:10 MPV 9.0 fL (7.2-11.7) 10/02/17 06:10 Neut % (Auto) 60.6 % (50.0-75.0) 10/02/17 06:10 Lymph % (Auto) 25.6 % (20.0-40.0) 10/02/17 06:10 [place] % (Auto) 9.8 % (0.0-10.0) 10/02/17 06:10 Eos % (Auto) 3.2 % (0.0-4.0) 10/02/17 06:10 Baso % (Auto) 0.8 % (0.0-2.0) 10/02/17 06:10 Neut # 4.4 K/uL (1.8-7.0) 10/02/17 06:10 Lymph # 1.9 K/uL (1.0-4.3) 10/02/17 06:10 [place] # 0.7 K/uL (0.0-0.8) 10/02/17 06:10 Eos # 0.2 K/uL (0.0-0.7) 10/02/17 06:10 Baso # 0.1 K/uL (0.0-0.2) 10/02/17 06:10 Neutrophils % (Manual) 88 % (50-75) H 09/24/17 08:50 Band Neutrophils % 2 % (0-2) 09/24/17 08:50 Lymphocytes % (Manual) 7 % (20-40) L 09/24/17 08:50 Monocytes % (Manual) 3 % (0-10) 09/24/17 08:50 Platelet Estimate Normal (NORMAL) 09/24/17 08:50 RBC Morphology Normal 09/24/17 08:50 PT 22.9 SECONDS (9.7-12.2) H 10/02/17 06:10 INR 2.0 10/02/17 06:10 APTT 38 SECONDS (21-34) H D 09/28/17 06:22 Sodium 134 mmol/L (132-148) 10/02/17 06:10 Potassium 3.8 mmol/L (3.6-5.2) 10/02/17 06:10 Chloride 95 mmol/L (98-107) L 10/02/17 06:10 Carbon Dioxide 28 mmol/L (22-30) 10/02/17 06:10 Anion Gap 15 (10-20) 10/02/17 06:10 BUN 13 mg/dL (7-17) 10/02/17 06:10 Creatinine 0.7 mg/dL (0.7-1.2) 10/02/17 06:10 Est GFR ( Amer) > 60 10/02/17 06:10 Est GFR (Non-Af Amer) > 60 10/02/17 06:10 POC Glucose (mg/dL) 90 mg/dL (65-110) 10/02/17 11:08 Random Glucose 105 mg/dL (65-105) 10/02/17 06:10 Hemoglobin A1c 6.9 % (4.2-6.5) H 09/24/17 08:50 Calcium 8.2 mg/dl (8.6-10.4) L 10/02/17 06:10 Phosphorus 3.1 mg/dL (2.5-4.5) 09/24/17 08:50 Magnesium 1.8 mg/dL (1.6-2.3) 09/24/17 08:50 Total Bilirubin 0.6 mg/dL (0.2-1.3) 10/02/17 06:10 AST 26 U/L (14-36) 10/02/17 06:10 ALT 38 U/L (9-52) 10/02/17 06:10 Alkaline Phosphatase 72 U/L (38-126) 10/02/17 06:10 Troponin I < 0.0120 ng/mL (0.00-0.120) 09/23/17 10:38 NT-Pro-B Natriuret Pep 1120 pg/mL (0-900) H 09/23/17 10:38 Total Protein 7.0 g/dL (6.3-8.3) 10/02/17 06:10 Albumin 3.8 g/dL (3.5-5.0) 10/02/17 06:10 Globulin 3.2 gm/dL (2.2-3.9) 10/02/17 06:10 Albumin/Globulin Ratio 1.2 (1.0-2.1) 10/02/17 06:10 Triglycerides 77 mg/dL (0-149) D 09/24/17 08:50 Cholesterol 132 mg/dL (0-199) 09/24/17 08:50 LDL Cholesterol Direct 82 mg/dL (0-129) 09/24/17 08:50 HDL Cholesterol 31 mg/dL (30-70) 09/24/17 08:50 TSH 3rd Generation 1.41 mIU/L (0.46-4.68) 09/24/17 08:50 Urine Color Yellow (YELLOW) 09/23/17 11:06 Urine Clarity Clear (Clear) 09/23/17 11:06 Urine pH 6.0 (5.0-8.0) 09/23/17 11:06 Ur Specific [place] 1.012 (1.003-1.030) 09/23/17 11:06 Urine Protein Negative mg/dL (NEGATIVE) 09/23/17 11:06 Urine Glucose (UA) Normal mg/dL (Normal) 09/23/17 11:06 Urine Ketones Negative mg/dL (NEGATIVE) 09/23/17 11:06 Urine Blood Negative (NEGATIVE) 09/23/17 11:06 Urine Nitrate Negative (NEGATIVE) 09/23/17 11:06 Urine Bilirubin Negative (NEGATIVE) 09/23/17 11:06 Urine Urobilinogen Normal mg/dL (0.2-1.0) 09/23/17 11:06 Ur Leukocyte Esterase Neg Dima/uL (Negative) 09/23/17 11:06 Urine WBC (Auto) 1 /hpf (0-5) 09/23/17 11:06 Urine RBC (Auto) < 1 /hpf (0-3) 09/23/17 11:06 Ur Squamous Epith Cells 3 /hpf (0-5) 09/23/17 11:06 Urine Bacteria Rare (<OCC) 09/23/17 11:06 Digoxin < 0.4 ng/mL (0.8-2.0) L 09/23/17 11:20 Influenza Typ A,B (EIA) Negative for flu a/b (NEGATIVE) 09/23/17 12:45 Attending/Attestation - Attestation I have personally seen and examined this patient.: Yes I have fully participated in the care of the patient.: Yes I have reviewed all pertinent clinical information, including history, physical exam and plan: Yes Notes (Text): Patient seen, examined, and case discussed with day-time resident. Patient seen with her daughter at bedside. Patient denies acute complaints. Patient's INR is therapuetic. Patient is scheduled for appointment at the [facility] ([phone]) for tomorrow 10/03 for INR check. Discussed discharge order and instructions with patient and her daughter at bedside. New prescriptions upon discharge: Patient is to take the following medications upon discharge: 1. Aspirin 81mg by mouth daily (breakfast), disp #30, 6 refills-->available over the counter 2. Lipitor 10 mg by mouth daily (dinner), disp #30, no refills--Advised to get refill upon followup with PMD 3. Cardizem 60 mg by mouth four times a day, disp #120, no refills-- --Advised to get refill upon followup with PMD 4. Lasix 20mg one by mouth daily (breakfast), disp #30, no refills----Advised to get refill upon followup with PMD 5. Cozaar 25 mg one by mouth daily (breakfast), disp #30, no refills----Advised to get refill upon followup with PMD 6. Metformin 500mg by mouth twice a day (breakfast and dinner), disp #60, no refills----Advised to get refill upon followup with PMD and will need to see specialists for eye and foot for annual screening exams 7. Coumadin 5mg one by mouth daily (breakfast), disp #30, no refills--Advised for weekly INR checks to adjust Coumadin dose and avoid dark leafy green vegetables. All instructions explained to the patient and she agrees. Discharge Diagnoses 1) Acute on Chronic systolic CHF exacerbation-->Stable * cardiology consulted, Dr. Nunez, help appreciated * recommends rate control, starting coumadin, SW eval for medications and clinic follow up. * Patient is not eligible for NOAC since she has vavular atrial fibrillation * ECHO (09/23/17): mild LV dysfunction, severe bilateral atrial dilatation, moderate to severe mitral stenosis., severe pulmonary HTN. * BNP: 1120 * Lasix 20mg ivp daily * Cardizem 60mg po QID * ASA 81 mg po daily * Crestor 5 mg PO HS and when ready should be discharged on Lipitor 10mg POHS for cardiovascular protection; due to affordability * Losartan 25mg po daily * TSH and Lipid Panel - WNL * HgBA1c = 6.9 2) Valvular A-fib -->Stable * EKG: A fib with RVR at 120 bpm on admission * Cardizem 60mg po QID * ASA 81 mg po daily * INR therapeutic; discharge on Coumadin 5mg PO daily; recommended weekly INR checks. Patient is aware if she doesnt have weekly INR checks, Coumadin puts her at risk for excessive bleeding. Patient also is aware that atrial fibrillation carries a stroke risk which is why she is on the Coumadin. 3) Hypertension-->Chronic * Losartan 25mg po daily * Cardizem 60mg po QID * Monitor vital signs and adjust accordingly 4) DM 2-->Chronic * HgBA1C is 6.9 * Metformin 500 mg PO 2x/day (breakfast and dinner) starting 09/26/17 * Crestor 5 mg PO HS switched to Lipitor 10mg POqHS * Losartan 25mg po daily * She will need to be instructed to follow up with Podiatry and Opthalmology in [place] * Dietary Consult for Diabetes Diet instruction ordered * Hypoglycemia Protocol * RISS ACHS 5) Prophylaxis * Pepcid 20mg po BID * INR therapeutic.
== END 2017-10-02 13:36 | disposition home or self-care (01) | DRG 127 ==
LOC: C.ER 10:01 → C.6T 14:05 → C.9E 14:05
PROVIDERS: ADMIT Internal Medicine; ATTEND Internal Medicine
DX: I11.0 Hypertensive heart disease with heart failure (principal); I27.20 Pulmonary hypertension, unspecified; J98.11 Atelectasis; J40 Bronchitis, not specified as acute or chronic; J06.9 Acute upper respiratory infection, unspecified; I48.91 Unspecified atrial fibrillation; E11.9 Type 2 diabetes mellitus without complications; I50.23 Acute on chronic systolic (congestive) heart failure; E03.9 Hypothyroidism, unspecified; E78.00 Pure hypercholesterolemia, unspecified; Z91.14 Patient's other noncompliance with medication regimen; I05.0 Rheumatic mitral stenosis; K80.20 Calculus of gallbladder without cholecystitis without obstruction; Z79.4 Long term (current) use of insulin